=== PATIENT | female | born 1990 | race Caucasian/White ===

== ENCOUNTER 2016-05-10 14:18 | Emergency (ER) | payer MEDICAID ==
--- NOTE | 2016-05-10 14:31 | ER Document Report ---
ED Medical Screen (RME) - General Stated Complaint: FACIAL WEAKNESS Notes: pt states she woke up this morning with pain behind her right ear and then the right side of her face feels "strange". she hasnt been able to smile since she woke up. no headache, trauma, no other associated muscle abnormalities, no speech abnormlaities Full AROM, strength 5/5 b/l, no sensory deficits pt is fully ambulatory PMH: depression, anxiety
--- NOTE | 2016-05-10 16:15 | ER Document Report ---
ED General - General Chief Complaint: Facial Droop Stated Complaint: FACIAL WEAKNESS Mode of Arrival: Ambulatory Information source: Patient Notes: 26-year-old female who is 8 months presents with complaints of right facial symptoms. Patient believes she has Ashton's palsy. Admits to a history of herpes. Notes it is difficult close her eye scrunch her for head or close her mouth since this morning pt notes ear pain o nthe same side TRAVEL OUTSIDE OF THE [place] IN LAST 30 DAYS: No - HPI Onset: Just prior to arrival Onset/Duration: Sudden Quality of pain: Sharp Severity: Mild Associated symptoms: None Exacerbated by: Denies Relieved by: Denies Similar symptoms previously: No Recently seen / treated by doctor: No - Related Data Allergies/Adverse Reactions: No Known Allergies Allergy (Unverified 05/10/16 14:21) Past Medical History - Social History Smoking Status: Never Smoker Cigarette use (# per day): No Chew tobacco use (# tins/day): No Smoking Education Provided: No Frequency of alcohol use: None Drug Abuse: None Family History: Reviewed & Not Pertinent Patient has suicidal ideation: No Patient has homicidal ideation: No Renal/ Medical History: Denies: Hx Peritoneal Dialysis - Immunizations Hx Diphtheria, Pertussis, Tetanus Vaccination: Yes Review of Systems - Review of Systems Notes: REVIEW OF SYSTEMS: CONSTITUTIONAL : Denies fever, chills, or sweats. Denies recent illness. EENT: admits ot right ear pain, right eye difficulty closing eye lid CARDIOVASCULAR: Denies chest pain. Denies palpitations or racing or irregular heart beat. Denies ankle edema. RESPIRATORY: Denies cough, cold, or chest congestion. Denies shortness of breath, difficulty breathing, or wheezing. GASTROINTESTINAL: Denies abdominal pain or distention. Denies nausea, vomiting , or diarrhea. Denies blood in vomitus, stools, or per rectum. Denies black, tarry stools. Denies constipation. GENITOURINARY: Denies difficulty urinating, painful urination, burning, frequency, blood in urine, or discharge. FEMALE GENITOURINARY: Denies vaginal bleeding, heavy or abnormal periods, irregular periods. Denies vaginal discharge or odor. MUSCULOSKELETAL: Denies back or neck pain or stiffness. Denies joint pain or swelling. SKIN: Denies rash, lesions or sores. HEMATOLOGIC : Denies easy bruising or bleeding. LYMPHATIC: Denies swollen, enlarged glands. NEUROLOGICAL: admits to right facial droop PSYCHIATRIC: Denies anxiety or stress. Denies depression, suicidal ideation, or homicidal ideation. ALL OTHER SYSTEMS REVIEWED AND NEGATIVE. Dictation was performed using [employer] voice recognition software PHYSICAL EXAMINATION: GENERAL: Well-appearing, well-nourished and in no acute distress. HEAD: unable to scrunch forehead on the right , left at baseline EYES: Pupils equal round and reactive to light, extraocular movements intact, conjunctiva are normal.unable to fully clsoe left eye ENT: Nares patent, oropharynx clear without exudates. Moist mucous membranes. right ear herpetic ulcer noted NECK: Normal range of motion, supple without lymphadenopathy LUNGS: Breath sounds clear to auscultation bilaterally and equal. No wheezes rales or rhonchi. HEART: Regular rate and rhythm without murmurs ABDOMEN: Soft, nontender, nondistended abdomen. No guarding, no rebound. No masses appreciated. Female : deferred Musculoskeletal: Normal range of motion, no pitting or edema. No cyanosis. NEUROLOGICAL: Cranial nerves grossly intact. Normal speech, normal gait. Normal sensory, motor exams PSYCH: Normal mood, normal affect. SKIN: Warm, Dry, normal turgor, no rashes or lesions noted. Physical Exam - Vital signs Vitals: Temp Pulse Resp BP Pulse Ox 98.3 F 113 H 16 136/92 H 98 05/10/16 14:21 05/10/16 14:21 05/10/16 14:21 05/10/16 14:21 05/10/16 14:21 Course - Re-evaluation Re-evalutation: 05/10/16 16:[address] boyce regarding use of steroids 05/10/16 23:31 pt presentation is consistent with bells pallsy secondary to herpes, pt started on acyclovir and steroids Patient otherwise stable for discharge explained to her and close return precautions and follow-up with [facility] After performing a Medical Screening Examination, I estimate there is LOW risk for ACUTE GLAUCOMA, TEMPORAL ARTERITIS, MENINGITIS, INCRANIAL HEMORRHAGE, or ISCHEMIC STROKE thus I consider the discharge disposition reasonable. The patient and I have discussed the diagnosis and risks, and we agree with discharging home with close follow-up with the understanding that symptoms and presentations can change. We also discussed returning to the Emergency Department immediately if new or worsening symptoms occur. We have discussed the symptoms which are most concerning (e.g., changing or worsening symptoms, new numbness or weakness, vomiting, fever) that necessitate immediate return. - Vital Signs Vital signs: Temp Pulse Resp BP Pulse Ox 98.3 F 71 16 127/64 H 98 05/10/16 14:21 05/10/16 16:27 05/10/16 16:27 05/10/16 16:27 05/10/16 16:27 Discharge - Discharge Clinical Impression: Ashton's palsy Qualifiers: Weeks of gestation: 30 weeks Qualified Code(s): Z3A.30 - 30 weeks gestation of Condition: Stable Disposition: HOME, SELF-CARE Instructions: Ashton's Palsy ([facility]) Prescriptions: Acyclovir [Acyclovir 400 mg Tablet] 400 mg PO 5XD 10 Days Prednisone [Deltasone 20 mg Tablet] 3 tab PO DAILY 5 Days Referrals: [facility] [Provider Group] - Follow up tomorrow
[2016-05-10 16:29] VITALS: BP 127/64
== END 2016-05-10 16:27 | disposition home or self-care (01) ==
LOC: ER 14:18 → EDBD 14:18 → ER 16:27
DX: G51.0 Bell's palsy (principal); R29.810 Facial weakness; B00.9 Herpesviral infection, unspecified; Z3A.30 30 weeks gestation of pregnancy
CPT/HCPCS: 99283

== ENCOUNTER 2016-05-31 11:09 | Inpatient (IN) | payer MEDICAID ==
--- NOTE | 2016-05-31 12:01 | L&D Flow Sheet ---
LD Flowsheet Datetime Report Generated by CPN: 05/31/2016 12:00 Datetime: 05/31/2016 11:37 Vital Signs NBP Sys/Alee/Mean (mmHg): 119 (QS system process) : 78 (QS system process) : 90 (QS system process) Pulse: 98 (QS system process) Datetime: 05/31/2016 11:36 Assessment A Monitor Interventions for FHR: Ultrasound Adjusted (Kenyatta Marlatt, RN) Datetime: 05/31/2016 11:35 Uterine Activity Monitor Interventions for UA: [place] Adjusted (Kenyatta Marlatt, RN) Datetime: 05/31/2016 11:30 Assessment A Monitor Interventions for FHR: Ultrasound Adjusted (Kenyatta Marlatt, RN) Datetime: 05/31/2016 11:26 Vaginal Exam Dilatation (cm): 1.0 (Kenyatta Foy RN) Effacement (%): 0 (Kenyatta Foy RN) Station: -2 (Kenyatta Foy RN) Exam by: Matilde Foy RN (Kenyatta Foy RN)
[2016-05-31 12:07] LABS: AMNISURE (ROM) POSITIVE (NEGATIVE)
[2016-05-31 12:09] LABS: APPEARANCE,URINE CLOUDY; GLUCOSE, URINE NEGATIVE (NEGATIVE)
[2016-05-31 12:10] LABS: BILIRUBIN,URINE NEGATIVE (NEGATIVE); KETONES,URINE NEGATIVE (NEGATIVE); LEUKOCYTE ESTERASE,URINE NEGATIVE (NEGATIVE); NITRITE,URINE NEGATIVE (NEGATIVE); PROTEIN,URINE 30 mg/dL (NEGATIVE); URINE SPECIFIC GRAVITY 1.015; UROBILINOGEN,URINE NEGATIVE mg/dL (<2.0)
[2016-05-31 12:28] LABS: URINE BARBITURATES SCREEN NEGATIVE; URINE METHADONE SCREEN NEGATIVE; URINE OPIATES LOW NEGATIVE; URINE PHENCYCLIDINE SCREEN NEGATIVE
[2016-05-31] MEDS ORDERED: PENICILLIN G POTASSIUM 5,000,000 UNIT in DEXTROSE 5%-WATER 100 ML IV ONE (12:31)
[2016-05-31] MEDS ORDERED: RINGERS SOLUTION,LACTATED 1,000 ML IV PRN (12:31)
[2016-05-31 13:31] LABS: ABSOLUTE BASOPHILS # (AUTO) 0.1 10^3/uL (0.0-0.2); ABSOLUTE EOSINOPHILS # (AUTO) 0.1 10^3/uL (0.0-0.6); ABSOLUTE LYMPHOCYTES (AUTO) 1.9 10^3/uL (0.5-4.7); ABSOLUTE MONOCYTES (AUTO) 0.6 10^3/uL (0.1-1.4); ABSOLUTE NEUT (AUTO) 8.4 10^3/uL (1.7-8.2); BASOPHILS % (AUTO) 0.6 % (0-2); EOSINOPHILS % (AUTO) 0.5 % (0-6); HEMATOCRIT 37.5 % (36.0-47.0); HEMOGLOBIN 13.1 g/dL (12.0-15.5); HGB HCT DIFFERENCE 1.8; MEAN CORPUSCULAR HEMOGLOBIN 30.5 pg (27.0-33.4); MEAN CORPUSCULAR HGB CONC 34.8 g/dL (32.0-36.0); MEAN CORPUSCULAR VOLUME 88 fl (80-97); MONOCYTES % (AUTO) 5.2 % (3-13); RED BLOOD COUNT 4.28 10^6/uL (3.72-5.28); RED CELL DISTRIBUTION WIDTH 14.2 % (11.5-14.0); SEGMENTED NEUTROPHILS % (AUTO) 76.7 % (42-78)
[2016-05-31] MEDS ORDERED: MISOPROSTOL 0.1 MG TABLET ONE ×4 (14:00→23:31)
--- NOTE | 2016-05-31 14:01 | L&D Flow Sheet ---
LD Flowsheet Datetime Report Generated by CPN: 05/31/2016 14:00 Datetime: 05/31/2016 13:34 Unit Routine: Consents Signed (Aurora Camp, RNC) Teaching Comments: consents reviewed, questions addressed (Aurora Camp, RNC) Datetime: 05/31/2016 13:25 IV/Blood Work: IV Started; IV Bolus Started; IV Infusing per Order (Aurora Camp, RNC) Patient Care Comments: 18 g jelco placed in right hand LR 1000 ml infusing via gravity as ordered (Aurora Flores, RNC) Datetime: 05/31/2016 13:14 IV/Blood Work: Labs Drawn (Aurora Flores, RNC)
[2016-05-31] MEDS ORDERED: PENICILLIN G-K 5 MILLION UNIT VIAL ONE (15:49)
--- NOTE | 2016-05-31 18:01 | L&D Flow Sheet ---
LD Flowsheet Datetime Report Generated by CPN: 05/31/2016 18:00 Datetime: 05/31/2016 17:45 NBP Sys/Alee/Mean (mmHg): 140 (QS system process) : 91 (QS system process) : 111 (QS system process) Pulse: 98 (QS system process) LaborFlag: Antepartum (QS system process) Datetime: 05/31/2016 17:34 NBP Sys/Alee/Mean (mmHg): 163 (QS system process) : 90 (QS system process) : 118 (QS system process) Pulse: 100 (QS system process) LaborFlag: Antepartum (QS system process) Datetime: 05/31/2016 17:32 Temperature (F): 98.3 (Viet Bauer RN) Temperature (C): 36.8 (QS system process) Monitor Mode: External (Viet Bauer, RN) Frequency (min): 0 (Viet Bauer RN) Resting Tone (Palpate): Relaxed (Viet Bauer RN) Monitor Mode: External US (Viet Bauer, RN) FHR Baseline Rate : 135 (Viet Bauer, RN) Variability: Moderate 6-25 bpm (Viet Bauer, RN) Accelerations: 15X15 (Viet Bauer, RN) Decelerations: None (Viet Bauer, RN) IV/Blood Work: IV Infusing per Order (Viet Bauer RN) LaborFlag: Antepartum (QS system process) Datetime: 05/31/2016 16:57 Monitor Mode: External (Nnada Bellavance, RNC) Frequency (min): 0 (Nanda Bellavance, RNC) Resting Tone (Palpate): Relaxed (Nanda Bellavance, RNC) Monitor Mode: External US (Nanda Bellavance, RNC) FHR Baseline Rate : 135 (Nanda Bellavance, RNC) Variability: Moderate 6-25 bpm (Nanda Bellavance, RNC) Accelerations: 15X15 (Nanda Bellavance, RNC) Decelerations: None (Nanda Bellavance, RNC) IV/Blood Work: IV Infusing per Order (Nanda Bellavance, RNC) Datetime: 05/31/2016 16:30 Monitor Mode: External (Nanda Bellavance, RNC) Frequency (min): rare (Nanda Bellavance, RNC) Quality: Mild (Nanda Bellavance, RNC) Duration (sec): 80 (Nanda Bellavance, RNC) Resting Tone (Palpate): Relaxed (Nanda Bellavance, RNC) Monitor Mode: External US (Nanda Bellavance, RNC) FHR Baseline Rate : 135 (Nanda Bellavance, RNC) Variability: Moderate 6-25 bpm (Nanda Bellavance, RNC) Accelerations: 15X15 (Nanda Bellavance, RNC) Decelerations: None (Nanda Bellavance, RNC) IV/Blood Work: IV Infusing per Order (Nanda Bellavance, RNC) Datetime: 05/31/2016 16:00 Monitor Mode: External (Nanda Bellavance, RNC) Frequency (min): rare (Nanda Bellavance, RNC) Quality: Mild (Nanda Bellavance, RNC) Duration (sec): 90 (Nanda Bellavance, RNC) Resting Tone (Palpate): Relaxed (Nanda Bellavance, RNC) Monitor Mode: External US (Nanda Bellavance, RNC) FHR Baseline Rate : 135 (Nanda Bellavance, RNC) Variability: Moderate 6-25 bpm (Nanda Bellavance, RNC) Accelerations: 15X15 (Nanda Bellavance, RNC) Decelerations: None (Nanda Bellavance, RNC) Antibiotics: Penicillin IV (Units) @ (Annotations: 5 million units) (Nanda Bellavance, RNC) IV/Blood Work: IV Infusing per Order (Nanda Bellavance, RNC) Datetime: 05/31/2016 15:30 Monitor Mode: External (Nanda Bellavance, RNC) Frequency (min): 0 (Nanda Bellavance, RNC) Resting Tone (Palpate): Relaxed (Nanda Bellavance, RNC) Monitor Mode: External US (Nanda Bellavance, RNC) FHR Baseline Rate : 135 (Nanda Bellavance, RNC) Variability: Moderate 6-25 bpm (Nanda Bellavance, RNC) Accelerations: 15X15 (Nanda Bellavance, RNC) Decelerations: None (Nanda Bellavance, RNC) IV/Blood Work: IV Infusing per Order (Nanda Bellavance, RNC) Datetime: 05/31/2016 15:00 Monitor Mode: External (Nanda Bellavance, RNC) Frequency (min): 0 (Nanda Bellavance, RNC) Resting Tone (Palpate): Relaxed (Nanda Bellavance, RNC) Monitor Mode: External US (Nanda Bellavance, RNC) FHR Baseline Rate : 135 (Nanda Bellavance, RNC) Variability: Moderate 6-25 bpm (Nanda Bellavance, RNC) Accelerations: 15X15 (Nanda Bellavance, RNC) Decelerations: Variable (Nanda Bellavance, RNC) IV/Blood Work: IV Infusing per Order (Nanda Bellavance, RNC) Datetime: 05/31/2016 14:45 Cervical Ripening Agents: Cytotec @ 50 po (Nanda Bellavance, RNC) Datetime: 05/31/2016 14:30 Monitor Mode: External (Nanda Bellavance, RNC) Frequency (min): 0 (Nanda Bellavance, RNC) Resting Tone (Palpate): Relaxed (Nanda Bellavance, RNC) Monitor Mode: External US (Nanda Bellavance, RNC) FHR Baseline Rate : 135 (Nanda Bellavance, RNC) Variability: Moderate 6-25 bpm (Nanda Bellavance, RNC) Accelerations: 15X15 (Nanda Bellavance, RNC) Decelerations: None (Nanda Bellavance, RNC) IV/Blood Work: IV Infusing per Order (Nanda Bellavance, RNC) Datetime: 05/31/2016 14:00 Monitor Mode: External (Nanda Bellavance, RNC) Frequency (min): 0 (Nanda Bellavance, RNC) Resting Tone (Palpate): Relaxed (Nanda Bellavance, RNC) Monitor Mode: External US (Nanda Bellavance, RNC) FHR Baseline Rate : 130 (Nanda Bellavance, RNC) Variability: Moderate 6-25 bpm (Nanda Bellavance, RNC) Accelerations: 15X15 (Nanda Bellavance, RNC) Decelerations: None (Nanda Bellavance, RNC) IV/Blood Work: IV Infusing per Order (Nanda Alva, RNC)
[2016-05-31 19:53] LABS: CHLAM PCR NOT DETECTED (NOT DETECT)
--- NOTE | 2016-05-31 20:01 | L&D Flow Sheet ---
LD Flowsheet Datetime Report Generated by CPN: 05/31/2016 20:00 Datetime: 05/31/2016 19:50 Communication: Provider Orders Received ([facility], RN) Communication Comments: Dr Ceballos on the floor, orders received Cytotes 25 mcg q 4 until pt. is 3 cm dilated. (Karen Jonnathangerwood, RN) Datetime: 05/31/2016 19:48 NBP Sys/Alee/Mean (mmHg): 140 (QS system process) : 82 (QS system process) : 106 (QS system process) Pulse: 90 (QS system process) LaborFlag: Antepartum (QS system process) Datetime: 05/31/2016 19:47 Membrane Status: Ruptured (Marcia Lattibeaudeir, RN) Membranes Rupture Method: Spontaneous (Marcia Lattibeaudeir, RN) Datetime: 05/31/2016 19:30 Monitor Mode: External; Palpation (Karen Chenwood, RN) Frequency (min): none (Karen Ledgerwood, RN) Resting Tone (Palpate): Relaxed (Karen Ledgerwood, RN) Contraction Comments: no contractions noted per palpation, pt reports no contractions. (Karen Ledgerwood, RN) Monitor Mode: External US (Karen Ledgerwood, RN) FHR Baseline Rate : 145 (Karen Ledgerwood, RN) FHR Baseline Changes: No Baseline Change (Karen Ledgerwood, RN) Variability: Moderate 6-25 bpm (Karen Ledgerwood, RN) Accelerations: 15X15 (Karen Ledgerwood, RN) Decelerations: None (Karen Ledgerwood, RN) Datetime: 05/31/2016 19:29 NBP Sys/Alee/Mean (mmHg): 148 (QS system process) : 82 (QS system process) : 107 (QS system process) Pulse: 103 (QS system process) LaborFlag: Antepartum (QS system process) Datetime: 05/31/2016 19:21 Pain Scale: 2 (aKren Walls RN) Pain Presence: Intermittent (Karen Walls RN) Pain Type: Contraction (Karen Walls RN) Pain Location: Abdomen (Karen Walls RN) Level of Consciousness: Fully Conscious (Karen Walls RN) DTR's/Clonus: DTRs 2+; No Clonus (Karen Walls RN) Headache: Denies (Karen Walls RN) Breath Sounds, Left: Clear and Equal (Karen Walls RN) Breath Sounds, Right: Clear and Equal (Karen Walls RN) Nausea/Vomiting: Denies (Karen Walls RN) RUQ Epigastric Pain: Denies (Karen Walls RN) Instructional Method: Demo; Verbal; Patient Instructed (Karen Walls RN) Plan of Care: Plan of Care Discussed; Vaginal Delivery; Induction (Karen Walls RN) Unit Routine: Monitoring (Karen Walls RN) LaborFlag: Antepartum (QS system process) Datetime: 05/31/2016 19:18 NBP Sys/Alee/Mean (mmHg): 158 (QS system process) : 83 (QS system process) : 114 (QS system process) Pulse: 100 (QS system process) LaborFlag: Antepartum (QS system process) Datetime: 05/31/2016 19:11 Communication Comments: Report received from Viet Bauer RN (Karen Walls RN) Datetime: 05/31/2016 18:48 NBP Sys/Alee/Mean (mmHg): 150 (QS system process) : 73 (QS system process) : 104 (QS system process) Pulse: 112 (QS system process) LaborFlag: Antepartum (QS system process) Datetime: 05/31/2016 18:30 Monitor Mode: External; Palpation (Aurora Camp, RNC) Frequency (min): irritability (Aurora Camp, RNC) Resting Tone (Palpate): Relaxed (Aurora Camp, RNC) Monitor Mode: External US; Auscultation (Aurora Camp, RNC) FHR Baseline Rate : 135 (Aurora Camp, RNC) FHR Baseline Changes: No Baseline Change (Aurora Camp, RNC) Variability: Moderate 6-25 bpm (Aurora Camp, RNC) Accelerations: 15X15 (Aurora Camp, RNC) Datetime: 05/31/2016 18:19 NBP Sys/Alee/Mean (mmHg): 142 (QS system process) : 86 (QS system process) : 110 (QS system process) Pulse: 85 (QS system process) LaborFlag: Antepartum (QS system process) Datetime: 05/31/2016 18:00 Monitor Mode: External; Palpation (Aurora Camp, RNC) Monitor Interventions for UA: [place] Adjusted (Aurora Camp, RNC) Frequency (min): irritability (Aurora Camp, RNC) Resting Tone (Palpate): Relaxed (Aurora Camp, RNC) Monitor Mode: External US; Auscultation (Aurora Camp, RNC) FHR Baseline Rate : 140 (Aurora Camp, RNC) FHR Baseline Changes: No Baseline Change (Aurora Camp, RNC) Variability: Moderate 6-25 bpm (Aurora Camp, RNC) Accelerations: 15X15 (Aurora Camp, RNC) Decelerations: None (Aurora Camp, RNC)
[2016-05-31] MEDS ORDERED: MISOPROSTOL 0.1 MG TABLET PO ONE (20:30)
--- NOTE | 2016-05-31 22:00 | L&D Flow Sheet ---
LD Flowsheet Datetime Report Generated by CPN: 05/31/2016 22:00 Datetime: 05/31/2016 21:51 Monitor Interventions for UA: [place] Adjusted (Karen Ledgerwood, RN) Communication: RN at Bedside (Karen Ledgerwood, RN) Datetime: 05/31/2016 21:48 NBP Sys/Alee/Mean (mmHg): 133 (QS system process) : 84 (QS system process) : 104 (QS system process) Pulse: 87 (QS system process) LaborFlag: Antepartum (QS system process) Datetime: 05/31/2016 21:36 Monitor Interventions for UA: [place] Adjusted (Karen Jonnathangerwood, RN) Communication: RN at Bedside (Karen Ledgerwood, RN) Datetime: 05/31/2016 21:30 Monitor Mode: External; Palpation (Karen Ledgerwood, RN) Frequency (min): 5-7 (Karen Ledgerwood, RN) Quality: Mild (Karen Ledgerwood, RN) Duration (sec): 80-120 (Karen Ledgerwood, RN) Resting Tone (Palpate): Relaxed (Karen Ledgerwood, RN) Monitor Mode: External US (Karen Ledgerwood, RN) FHR Baseline Rate : 154 (Karen Ledgerwood, RN) FHR Baseline Changes: No Baseline Change (Karen Ledgerwood, RN) Variability: Moderate 6-25 bpm (Karen Ledgerwood, RN) Accelerations: 10X10 (Karen Ledgerwood, RN) Decelerations: None (Karen Ledgerwood, RN) Datetime: 05/31/2016 21:18 NBP Sys/Alee/Mean (mmHg): 138 (QS system process) : 88 (QS system process) : 108 (QS system process) Pulse: 87 (QS system process) LaborFlag: Antepartum (QS system process) Datetime: 05/31/2016 21:00 Monitor Mode: External; Palpation (Karen Ledgerwood, RN) Frequency (min): irritability (Karen Ledgerwood, RN) Quality: Mild (Karen Ledgerwood, RN) Resting Tone (Palpate): Relaxed (Karen Ledgerwood, RN) Monitor Mode: External US (Karen Ledgerwood, RN) FHR Baseline Rate : 145 (Karen Ledgerwood, RN) FHR Baseline Changes: No Baseline Change (Karen Ledgerwood, RN) Variability: Moderate 6-25 bpm (Karen Ledgerwood, RN) Accelerations: 10X10 (Karen Ledgerwood, RN) Decelerations: None (Karen Ledgerwood, RN) Datetime: 05/31/2016 20:49 NBP Sys/Alee/Mean (mmHg): 142 (QS system process) : 85 (QS system process) : 109 (QS system process) Pulse: 82 (QS system process) LaborFlag: Antepartum (QS system process) Datetime: 05/31/2016 20:30 Monitor Mode: External; Palpation (Karen Ledgerwood, RN) Frequency (min): irritability (Karen Ledgerwood, RN) Resting Tone (Palpate): Relaxed (Karen Ledgerwood, RN) Monitor Mode: External US (Karen Ledgerwood, RN) FHR Baseline Rate : 145 (Karen Ledgerwood, RN) FHR Baseline Changes: No Baseline Change (Karen Ledgerwood, RN) Variability: Moderate 6-25 bpm (Karen Ledgerwood, RN) Accelerations: 15X15 (Karen Ledgerwood, RN) Decelerations: None (Karen Ledgerwood, RN) Datetime: 05/31/2016 20:18 NBP Sys/Alee/Mean (mmHg): 143 (QS system process) : 83 (QS system process) : 107 (QS system process) Pulse: 97 (QS system process) LaborFlag: Antepartum (QS system process) Datetime: 05/31/2016 20:00 Monitor Mode: External; Palpation (Karen Walls, TJ) Frequency (min): occas (Karen Walls, TJ) Quality: Mild (Karen Walls, RN) Duration (sec): 120 (Karen Walls, RN) Resting Tone (Palpate): Relaxed (Karen Walls, RN) Monitor Mode: External US (Karen Walls, RN) FHR Baseline Rate : 145 (Karen Walls, RN) FHR Baseline Changes: No Baseline Change (Karen Walls, RN) Variability: Moderate 6-25 bpm (Karen Walls, RN) Accelerations: 10X10 (Karen Walls, RN) Decelerations: None (Karen Walls, RN) Cervical Ripening Agents: Cytotec @ 25 (Karen Walls, TJ) Medication Comments: Cytotec 25 mcg PO given (Karen Walls, RN)
[2016-05-31] MEDS ORDERED: ONDANSETRON HCL INJ/PF 4 MG/2 ML SDV ONE (23:45)
[2016-05-31] MEDS ORDERED: ONDANSETRON HCL INJ/PF 4 MG/2 ML SDV IV ONE (23:48)
[2016-05-31] MEDS: MISOPROSTOL 0.1 MG TABLET PO SCH (23:59)
[2016-06-01] MEDS ORDERED: ZOLPIDEM TARTRATE 5 MG TABLET PO ONE (00:03)
[2016-06-01] MEDS ORDERED: ZOLPIDEM TARTRATE 5 MG TABLET ONE ×2 (00:04→00:40)
[2016-06-01] MEDS ORDERED: PENICILLIN G-K 5 MILLION UNIT VIAL ONE ×5 (00:23→16:29)
[2016-06-01] MEDS: PENICILLIN G POTASSIUM 2,500,000 UNIT in DEXTROSE 5%-WATER 50 ML IV SCH ×3 (00:31→16:50)
[2016-06-01] MEDS ORDERED: MISOPROSTOL 0.1 MG TABLET ONE (03:49)
[2016-06-01] MEDS: MISOPROSTOL 0.1 MG TABLET PO SCH (03:58)
[2016-06-01] MEDS ORDERED: PROMETHAZINE HCL INJ 25 MG/1 ML VIAL IV ONE (05:41)
[2016-06-01] MEDS ORDERED: PROMETHAZINE HCL INJ 25 MG/1 ML VIAL ONE (05:47)
--- NOTE | 2016-06-01 08:01 | L&D Flow Sheet ---
LD Flowsheet Datetime Report Generated by CPN: 06/01/2016 08:00 Datetime: 06/01/2016 07:50 NBP Sys/Alee/Mean (mmHg): 144 (QS system process) : 62 (QS system process) : 89 (QS system process) Pulse: 85 (QS system process) LaborFlag: Antepartum (QS system process) Datetime: 06/01/2016 07:36 Level of Consciousness: Fully Conscious (Shanna Bryanna, RN) Headache: Denies (Shanna Bryanna, RN) Breath Sounds, Left: Clear and Equal (Shanna Bryanna, RN) Breath Sounds, Right: Clear and Equal (Shanna Bryanna, RN) Nausea/Vomiting: pt states phenergan has helped a little but still feels nauseous at times (Shanna Bryanna, RN) RUQ Epigastric Pain: Denies (Shanna Bryanna, RN) Datetime: 06/01/2016 07:33 Patient Care Comments: pt resting in bed on her left side in no current distress (Shanna Bryanna, RN) Datetime: 06/01/2016 07:30 Monitor Mode: External; Palpation (Shanna Bryanna, RN) Frequency (min): 3-6 (Shanna Bryanna, RN) Quality: Mild (Shanna Bryanna, RN) Duration (sec): 50-80 (Shanna Bryanna, RN) Resting Tone (Palpate): Relaxed (Shanna Bryanna, RN) Monitor Mode: External US (Shanna Bryanna, RN) FHR Baseline Rate : 125 (Shanna Bryanna, RN) Variability: Moderate 6-25 bpm (Shanna Bryanna, RN) Accelerations: 15X15 (Shanna Bryanna, RN) Decelerations: None (Shanna Bryanna, RN) Datetime: 06/01/2016 07:22 Communication: Report Given to @ A Bryanna RN (Karen Ledgerwood, RN) Datetime: 06/01/2016 07:19 NBP Sys/Alee/Mean (mmHg): 155 (QS system process) : 80 (QS system process) : 106 (QS system process) Pulse: 91 (QS system process) LaborFlag: Antepartum (QS system process) Datetime: 06/01/2016 07:00 Monitor Mode: External; Palpation (Karen Ledgerwood, RN) Frequency (min): 2.5-5 (Karen Ledgerwood, RN) Quality: Mild/Moderate (Karen Ledgerwood, RN) Duration (sec): 60-80 (Karen Ledgerwood, RN) Duration Criteria: Less than Two 120 Second Contractions (Karen Ledgerwood, RN) Pattern: Normal: <= 5 Contractions in 10 Minutes (Karen Ledgerwood, RN) Resting Tone (Palpate): Relaxed (Karen Ledgerwood, RN) Monitor Mode: External US (Karen Ledgerwood, RN) FHR Baseline Rate : 135 (Karen Ledgerwood, RN) FHR Baseline Changes: No Baseline Change (Karen Ledgerwood, RN) Variability: Moderate 6-25 bpm (Karen Ledgerwood, RN) Accelerations: 15X15 (Karen Ledgerwood, RN) Decelerations: Variable (Karen Ledgerwood, RN) Datetime: 06/01/2016 06:48 NBP Sys/Alee/Mean (mmHg): 143 (QS system process) : 67 (QS system process) : 96 (QS system process) Pulse: 83 (QS system process) LaborFlag: Antepartum (QS system process) Datetime: 06/01/2016 06:30 Monitor Mode: External; Palpation (Karen Ledgerwood, RN) Frequency (min): 3-4.5 (Karen Ledgerwood, RN) Quality: Mild/Moderate (Karen Ledgerwood, RN) Duration (sec): 50-70 (Karen Ledgerwood, RN) Duration Criteria: Less than Two 120 Second Contractions (Karen Ledgerwood, RN) Pattern: Normal: <= 5 Contractions in 10 Minutes (Karen Ledgerwood, RN) Resting Tone (Palpate): Relaxed (Karne Ledgerwood, RN) Monitor Mode: External US (Karen Ledgerwood, RN) FHR Baseline Rate : 130 (Karen Ledgerwood, RN) FHR Baseline Changes: No Baseline Change (Karen Ledgerwood, RN) Variability: Moderate 6-25 bpm (Karen Ledgerwood, RN) Accelerations: 10X10 (Karen Ledgerwood, RN) Decelerations: Variable (Karen Ledgerwood, RN) Datetime: 06/01/2016 06:18 NBP Sys/Alee/Mean (mmHg): 133 (QS system process) : 73 (QS system process) : 97 (QS system process) Pulse: 88 (QS system process) LaborFlag: Antepartum (QS system process) Datetime: 06/01/2016 06:00 Monitor Mode: External; Palpation (Karen Ledgerwood, RN) Frequency (min): 2.5-4.5 (Karen Ledgerwood, RN) Quality: Mild/Moderate (Karen Ledgerwood, RN) Duration (sec): 60-70 (Karen Ledgerwood, RN) Duration Criteria: Less than Two 120 Second Contractions (Karen Ledgerwood, RN) Pattern: Normal: <= 5 Contractions in 10 Minutes (Karen Ledgerwood, RN) Resting Tone (Palpate): Relaxed (Karen Ledgerwood, RN) Monitor Mode: External US (Karen Ledgerwood, RN) FHR Baseline Rate : 135 (Karen Ledgerwood, RN) FHR Baseline Changes: No Baseline Change (Karen Ledgerwood, RN) Variability: Moderate 6-25 bpm (Karen Ledgerwood, RN) Accelerations: 10X10 (Karen Ledgerwood, RN) Decelerations: Variable (Karen Ledgerwood, RN) Datetime: 06/01/2016 05:51 Antiemetics/Antacids: Phenergan IV (mg) @ 25 (Karen Ledgerwood, RN) Datetime: 06/01/2016 05:50 NBP Sys/Alee/Mean (mmHg): 148 (QS system process) : 75 (QS system process) : 105 (QS system process) Pulse: 95 (QS system process) Respirations: 15 (Karen Naranjo, RN) LaborFlag: Antepartum (QS system process) Datetime: 06/01/2016 05:49 NBP Sys/Alee/Mean (mmHg): 160 (QS system process) : 92 (QS system process) : 117 (QS system process) Pulse: 95 (QS system process) LaborFlag: Antepartum (QS system process) Datetime: 06/01/2016 05:39 Communication: Provider Orders Received; Call/Page Placed to Provider (Karen Naranjo, RN) Communication Comments: Order received from Dr Ceballos to give Phenergan IV 25 mg Now (Karencasandra De Santiagogeranabelle, RN) Datetime: 06/01/2016 05:30 Monitor Mode: External; Palpation (Karen Naranjo, RN) Frequency (min): 2.5 (Karen Ledgerwood, RN) Quality: Mild/Moderate (Karen Ledgerwood, RN) Duration (sec): 70 (Karen Ledgerwood, RN) Duration Criteria: Less than Two 120 Second Contractions (Karen Ledgerwood, RN) Pattern: Normal: <= 5 Contractions in 10 Minutes (Karen Ledgerwood, RN) Resting Tone (Palpate): Relaxed (Karen Ledgerwood, RN) Monitor Mode: External US (Karen Ledgerwood, RN) FHR Baseline Rate : 145 (Karen Ledgerwood, RN) FHR Baseline Changes: No Baseline Change (Karen Ledgerwood, RN) Variability: Moderate 6-25 bpm (Karen Ledgerwood, RN) Accelerations: 10X10 (Karen Ledgerwood, RN) Decelerations: Variable (Karen Ledgerwood, RN) Datetime: 06/01/2016 05:18 NBP Sys/Alee/Mean (mmHg): 136 (QS system process) : 88 (QS system process) : 109 (QS system process) Pulse: 98 (QS system process) LaborFlag: Antepartum (QS system process) Datetime: 06/01/2016 05:07 Patient Position/Activity: Left Extreme (Karen Ledgerwood, RN) Datetime: 06/01/2016 05:06 IV/Blood Work: IV Started; IV Bolus Started (Sherlyn Errichiello, RN) Datetime: 06/01/2016 05:01 SpO2 (%): 90 (QS system process) LaborFlag: Antepartum (QS system process) Datetime: 06/01/2016 05:00 Monitor Mode: External; Palpation (Karen Ledgerwood, RN) Frequency (min): 1.5-3 (Karen Ledgerwood, RN) Quality: Mild/Moderate (Karen Ledgerwood, RN) Duration (sec): 60-70 (Kraen Ledgerwood, RN) Duration Criteria: Less than Two 120 Second Contractions (Karen Ledgerwood, RN) Pattern: Normal: <= 5 Contractions in 10 Minutes (Karen Ledgerwood, RN) Resting Tone (Palpate): Relaxed (Karen Ledgerwood, RN) Monitor Mode: External US (Karen Ledgerwood, RN) FHR Baseline Rate : 120 (Karen Ledgerwood, RN) FHR Baseline Changes: No Baseline Change (Karen Ledgerwood, RN) Variability: Moderate 6-25 bpm (Karen Ledgerwood, RN) Accelerations: 10X10 (Karen Ledgerwood, RN) Decelerations: Prolonged (Karen Ledgerwood, RN) Datetime: 06/01/2016 04:56 Actions for Decelerations: Hands and Knees; Oxygen Applied (Karen Naranjo, TJ) Datetime: 06/01/2016 04:51 Monitor Interventions for UA: [place] Adjusted (Karen Naranjo RN) Monitor Interventions for FHR: Ultrasound Adjusted (Karen Naranjo RN) Actions for Decelerations: Side to Side; IV Bolus (Karen Naranjo RN) Communication: RN at Bedside (Karen Naranjo RN) Datetime: 06/01/2016 04:48 NBP Sys/Alee/Mean (mmHg): 146 (QS system process) : 80 (QS system process) : 107 (QS system process) Pulse: 96 (QS system process) Temperature (F): 98.2 (Karen Ledgerwood, RN) Temperature (C): 36.8 (QS system process) Temperature Route: Oral (Karen Ledgerwood, RN) LaborFlag: Antepartum (QS system process) Datetime: 06/01/2016 04:30 Monitor Mode: External; Palpation (Karen Ledgerwood, RN) Frequency (min): 1.5-3 (Karen Ledgerwood, RN) Quality: Mild/Moderate (Karen Ledgerwood, RN) Duration (sec): 60-70 (Karen Ledgerwood, RN) Duration Criteria: Less than Two 120 Second Contractions (Karen Ledgerwood, RN) Pattern: Normal: <= 5 Contractions in 10 Minutes (Karen Ledgerwood, RN) Resting Tone (Palpate): Relaxed (Karen Ledgerwood, RN) Monitor Mode: External US (Karen Ledgerwood, RN) FHR Baseline Rate : 120 (Karen Ledgerwood, RN) FHR Baseline Changes: No Baseline Change (Karen Ledgerwood, RN) Variability: Moderate 6-25 bpm (Karen Ledgerwood, RN) Accelerations: 15X15 (Karen Ledgerwood, RN) Decelerations: None (Karen Ledgerwood, RN) Datetime: 06/01/2016 04:20 Antibiotics: Penicillin IV (Units) @ [id number] (Karen Ledgerwood, RN) Datetime: 06/01/2016 04:19 NBP Sys/Alee/Mean (mmHg): 148 (QS system process) : 78 (QS system process) : 106 (QS system process) Pulse: 83 (QS system process) Respirations: 16 (Karen Ledgerwood, RN) LaborFlag: Antepartum (QS system process) Datetime: 06/01/2016 04:00 Monitor Mode: External; Palpation (Karen Ledgerwood, RN) Frequency (min): 1.5-3 (Karen Ledgerwood, RN) Quality: Mild/Moderate (Karen Ledgerwood, RN) Duration (sec): 60-70 (Karen Ledgerwood, RN) Duration Criteria: Less than Two 120 Second Contractions (Karen Ledgerwood, RN) Pattern: Normal: <= 5 Contractions in 10 Minutes (Karen Ledgerwood, RN) Resting Tone (Palpate): Relaxed (Karen Naranjo, RN) Monitor Mode: External US (Karen Naranjo, RN) FHR Baseline Rate : 135 (Karen Naranjo, RN) FHR Baseline Changes: No Baseline Change (Karen Naranjo, RN) Variability: Moderate 6-25 bpm (Karen De Santiagogeranabelle, RN) Decelerations: None (Karen Naranjo, RN) Cervical Ripening Agents: Cytotec @ (Marcia Concepcion RN) Medication Comments: Cytotec 25 mcg PO given (Karen Naranjo, RN) Datetime: 06/01/2016 03:53 Dilatation (cm): 2.0 (Karen Naranjo, RN) Effacement (%): 50 (Karen Naranjo, RN) Station: -2 (Karen Naranjo, RN) Exam by: Leonid naranjo RN (Karen Naranjo, RN) Datetime: 06/01/2016 03:48 NBP Sys/Laee/Mean (mmHg): 146 (QS system process) : 79 (QS system process) : 106 (QS system process) Pulse: 93 (QS system process) LaborFlag: Antepartum (QS system process) Datetime: 06/01/2016 03:30 Monitor Mode: External; Palpation (Karen Ledgerwood, RN) Frequency (min): 1.5-3.5 (Karen Ledgerwood, RN) Quality: Mild/Moderate (Karen Ledgerwood, RN) Duration (sec): 60-70 (Karen Ledgerwood, RN) Duration Criteria: Less than Two 120 Second Contractions (Karen Ledgerwood, RN) Pattern: Normal: <= 5 Contractions in 10 Minutes (Karen Ledgerwood, RN) Resting Tone (Palpate): Relaxed (Karen Ledgerwood, RN) Monitor Mode: External US (Karen Ledgerwood, RN) FHR Baseline Rate : 135 (Karen Ledgerwood, RN) FHR Baseline Changes: No Baseline Change (Karen Ledgerwood, RN) Variability: Moderate 6-25 bpm (Karen Ledgerwood, RN) Accelerations: 15X15 (Karen Ledgerwood, RN) Decelerations: None (Karen Ledgerwood, RN) Datetime: 06/01/2016 03:19 NBP Sys/Alee/Mean (mmHg): 142 (QS system process) : 75 (QS system process) : 100 (QS system process) Pulse: 94 (QS system process) LaborFlag: Antepartum (QS system process) Datetime: 06/01/2016 03:00 Monitor Mode: External; Palpation (Karen Ledgerwood, RN) Frequency (min): 1.5-5 (Karen Ledgerwood, RN) Quality: Mild/Moderate (Karen Ledgerwood, RN) Duration (sec): 60-90 (Karen Ledgerwood, RN) Duration Criteria: Less than Two 120 Second Contractions (Karen Ledgerwood, RN) Pattern: Normal: <= 5 Contractions in 10 Minutes (Karen Ledgerwood, RN) Resting Tone (Palpate): Relaxed (Karen Ledgerwood, RN) Monitor Mode: External US (Karen Ledgerwood, RN) FHR Baseline Rate : 135 (Karen Ledgerwood, RN) FHR Baseline Changes: No Baseline Change (Karen Ledgerwood, RN) Variability: Moderate 6-25 bpm (Karen Ledgerwood, RN) Accelerations: 10X10 (Karen Ledgerwood, RN) Decelerations: None (Karen Ledgerwood, RN) Datetime: 06/01/2016 02:30 Monitor Mode: External; Palpation (Karen Ledgerwood, RN) Frequency (min): 2.5-7 (Karen Ledgerwood, RN) Quality: Mild/Moderate (Karen Ledgerwood, RN) Duration (sec): 60-90 (Karen Ledgerwood, RN) Duration Criteria: Less than Two 120 Second Contractions (Karen Ledgerwood, RN) Pattern: Normal: <= 5 Contractions in 10 Minutes (Karen Ledgerwood, RN) Resting Tone (Palpate): Relaxed (Karen Ledgerwood, RN) Monitor Mode: External US (Karen Ledgerwood, RN) FHR Baseline Rate : 135 (Karen Ledgerwood, RN) FHR Baseline Changes: No Baseline Change (Karen Ledgerwood, RN) Variability: Moderate 6-25 bpm (Karen Ledgerwood, RN) Accelerations: 15X15 (Karen Ledgerwood, RN) Decelerations: Prolonged (Karen Ledgerwood, RN) Datetime: 06/01/2016 02:24 Patient Care Comments: pt. vomited (Karen Ledgerwood, RN) Datetime: 06/01/2016 02:19 NBP Sys/Alee/Mean (mmHg): 137 (QS system process) : 86 (QS system process) : 105 (QS system process) Pulse: 83 (QS system process) LaborFlag: Antepartum (QS system process) Datetime: 06/01/2016 02:00 Monitor Mode: External; Palpation (Karen Ledgerwood, RN) Frequency (min): 1.5-4.5 (Karen Ledgerwood, RN) Quality: Mild/Moderate (Karen Ledgerwood, RN) Duration (sec): 60-90 (Karen Ledgerwood, RN) Duration Criteria: Less than Two 120 Second Contractions (Karen Ledgerwood, RN) Pattern: Normal: <= 5 Contractions in 10 Minutes (Karen Ledgerwood, RN) Resting Tone (Palpate): Relaxed (Karen Ledgerwood, RN) Monitor Mode: External US (Karen Ledgerwood, RN) FHR Baseline Rate : 135 (Karen Ledgerwood, RN) FHR Baseline Changes: No Baseline Change (Karen Ledgerwood, RN) Variability: Moderate 6-25 bpm (Karen Ledgerwood, RN) Accelerations: 15X15 (Karen Ledgerwood, RN) Decelerations: None (Karen Ledgerwood, RN) Datetime: 06/01/2016 01:48 NBP Sys/Alee/Mean (mmHg): 136 (QS system process) : 92 (QS system process) : 110 (QS system process) Pulse: 80 (QS system process) LaborFlag: Antepartum (QS system process) Datetime: 06/01/2016 01:30 Monitor Mode: External; Palpation (Karen Ledgerwood, RN) Frequency (min): 1.5-6.5 (Karen Ledgerwood, RN) Quality: Mild/Moderate (Karen Ledgerwood, RN) Duration (sec): 60-90 (Karen Ledgerwood, RN) Duration Criteria: Less than Two 120 Second Contractions (Karen Ledgerwood, RN) Pattern: Normal: <= 5 Contractions in 10 Minutes (Karen Ledgerwood, RN) Resting Tone (Palpate): Relaxed (Karen Ledgerwood, RN) Monitor Mode: External US (Karen Ledgerwood, RN) FHR Baseline Rate : 145 (Karen Ledgerwood, RN) FHR Baseline Changes: No Baseline Change (Karen Ledgerwood, RN) Variability: Moderate 6-25 bpm (Karen Ledgerwood, RN) Accelerations: 15X15 (Karen Ledgerwood, RN) Decelerations: None (Karen Ledgerwood, RN) Datetime: 06/01/2016 01:18 NBP Sys/Alee/Mean (mmHg): 145 (QS system process) : 88 (QS system process) : 112 (QS system process) Pulse: 91 (QS system process) LaborFlag: Antepartum (QS system process) Datetime: 06/01/2016 01:04 Patient Care Comments: pt vomited (Karen Ledgerwood, RN) Communication: RN at Bedside (Karen Ledgerwood, RN) Datetime: 06/01/2016 01:00 Monitor Mode: External; Palpation (Karen Ledgerwood, RN) Frequency (min): 2.5-4.5 (Karen Ledgerwood, RN) Quality: Mild/Moderate (Karen Ledgerwood, RN) Duration (sec): 60-80 (Karen Ledgerwood, RN) Duration Criteria: Less than Two 120 Second Contractions (Karen Ledgerwood, RN) Pattern: Normal: <= 5 Contractions in 10 Minutes (Karen Ledgerwood, RN) Resting Tone (Palpate): Relaxed (Karen Ledgerwood, RN) Monitor Mode: External US (Karen Ledgerwood, RN) FHR Baseline Rate : 135 (Karen Ledgerwood, RN) FHR Baseline Changes: No Baseline Change (Karen Ledgerwood, RN) Variability: Moderate 6-25 bpm (Karen Ledgerwood, RN) Accelerations: 10X10 (Karen Ledgerwood, RN) Decelerations: None (Karen Ledgerwood, RN) Datetime: 06/01/2016 00:48 NBP Sys/Alee/Mean (mmHg): 137 (QS system process) : 73 (QS system process) : 98 (QS system process) Pulse: 90 (QS system process) Respirations: 15 (Karen Ledgerwood, RN) LaborFlag: Antepartum (QS system process) Datetime: 06/01/2016 00:36 Patient Care Comments: pt reports that she vomited within 15 minutes of taking Ambien, nurse did not see pills, Dr Ceballos notified. (Karen Ledgerwood, RN) Datetime: 06/01/2016 00:30 Monitor Mode: External; Palpation (Karen Ledgerwood, RN) Frequency (min): irritability (Karen Ledgerwood, RN) Resting Tone (Palpate): Relaxed (Karen Ledgerwood, RN) Monitor Mode: External US (Karen Ledgerwood, RN) FHR Baseline Rate : 145 (Karen Ledgerwood, RN) FHR Baseline Changes: No Baseline Change (Karen Ledgerwood, RN) Variability: Moderate 6-25 bpm (Karen Ledgerwood, RN) Accelerations: 15X15 (Karen Ledgerwood, RN) Decelerations: None (Karen Ledgerwood, RN) Antibiotics: Penicillin IV (Units) @ [id number] (Karen Ledgerwood, RN) Datetime: 06/01/2016 00:22 Patient Position/Activity: Right Extreme (Karen Ledgerwood, RN) Datetime: 06/01/2016 00:18 NBP Sys/Alee/Mean (mmHg): 135 (QS system process) : 75 (QS system process) : 99 (QS system process) Pulse: 88 (QS system process) LaborFlag: Antepartum (QS system process) Datetime: 06/01/2016 00:15 Analgesics/Sedatives: Ambien (mg) @ 10 (Karen Ledgerwood, RN) Datetime: 06/01/2016 00:00 Monitor Mode: External; Palpation (Karen Ledgerwood, RN) Frequency (min): 2.5-4.5 (Karen Ledgerwood, RN) Quality: Mild/Moderate (Karen Ledgerwood, RN) Duration (sec): 60-80 (Karen Ledgerwood, RN) Duration Criteria: Less than Two 120 Second Contractions (Karen Ledgerwood, RN) Pattern: Normal: <= 5 Contractions in 10 Minutes (Karen Ledgerwood, RN) Resting Tone (Palpate): Relaxed (Karen Ledgerwood, RN) Monitor Mode: External US (Karen Ledgerwood, RN) FHR Baseline Rate : 145 (Karen Ledgerwood, RN) FHR Baseline Changes: No Baseline Change (Karen Ledgerwood, RN) Variability: Moderate 6-25 bpm (Karen Ledgerwood, RN) Accelerations: 15X15 (Karen Ledgerwood, RN) Decelerations: None (Karen Ledgerwood, RN) Antiemetics/Antacids: Zofran IV (mg) @ 8 (Karen Ledgerwood, RN) Cervical Ripening Agents: Cytotec @ 25 (Karen Ledgerwood, RN) Medication Comments: 25 mcg po (Karen Ledgerwood, RN) Datetime: 05/31/2016 23:48 NBP Sys/Alee/Mean (mmHg): 128 (QS system process) : 88 (QS system process) : 102 (QS system process) Pulse: 90 (QS system process) LaborFlag: Antepartum (QS system process) Datetime: 05/31/2016 23:47 Dilatation (cm): 1.5 (Karen Naranjo, RN) Effacement (%): 50 (Karen Naranjo, RN) Station: -2 (Karen Naranjo, RN) Exam by: Leonid Naranjo RN (Karen Naranjo, RN) Datetime: 05/31/2016 23:30 Monitor Mode: External; Palpation (Karen Naranjo, RN) Frequency (min): 2.5-5.5 (Karen Naranjo, RN) Quality: Mild/Moderate (Karen Naranjo RN) Duration (sec): 60-80 (Karen Naranjo, RN) Duration Criteria: Less than Two 120 Second Contractions (Karen Naranjo, RN) Pattern: Normal: <= 5 Contractions in 10 Minutes (Karen Naranjo, RN) Resting Tone (Palpate): Relaxed (Karen Ledgerwood, RN) Monitor Mode: External US (Karen Ledgerwood, RN) FHR Baseline Rate : 145 (Karen Ledgerwood, RN) FHR Baseline Changes: No Baseline Change (Karen Ledgerwood, RN) Variability: Moderate 6-25 bpm (Karen Ledgerwood, RN) Accelerations: 15X15 (Karen Ledgerwood, RN) Decelerations: Early (Karen Ledgerwood, RN) Datetime: 05/31/2016 23:19 NBP Sys/Alee/Mean (mmHg): 135 (QS system process) : 82 (QS system process) : 104 (QS system process) Pulse: 86 (QS system process) LaborFlag: Antepartum (QS system process) Datetime: 05/31/2016 23:07 NBP Sys/Alee/Mean (mmHg): 155 (QS system process) : 89 (QS system process) : 116 (QS system process) Pulse: 88 (QS system process) LaborFlag: Antepartum (QS system process) Datetime: 05/31/2016 23:06 NBP Sys/Alee/Mean (mmHg): 162 (QS system process) : 96 (QS system process) : 120 (QS system process) Pulse: 84 (QS system process) LaborFlag: Antepartum (QS system process) Datetime: 05/31/2016 23:00 Monitor Mode: External; Palpation (Karen Ledgerwood, RN) Frequency (min): 2-5 (Karen Ledgerwood, RN) Quality: Mild/Moderate (Karen Ledgerwood, RN) Duration (sec): 70-80 (Karen Ledgerwood, RN) Duration Criteria: Less than Two 120 Second Contractions (Karen Ledgerwood, RN) Pattern: Normal: <= 5 Contractions in 10 Minutes (Karen Ledgerwood, RN) Resting Tone (Palpate): Relaxed (Karen Ledgerwood, RN) Monitor Mode: External US (Karen Ledgerwood, RN) FHR Baseline Rate : 145 (Karen Ledgerwood, RN) FHR Baseline Changes: No Baseline Change (Karen Ledgerwood, RN) Variability: Moderate 6-25 bpm (Karen Ledgerwood, RN) Accelerations: 15X15 (Karen Ledgerwood, RN) Decelerations: None (Karen Ledgerwood, RN) Datetime: 05/31/2016 22:48 NBP Sys/Alee/Mean (mmHg): 168 (QS system process) : 93 (QS system process) : 121 (QS system process) Pulse: 79 (QS system process) LaborFlag: Antepartum (QS system process) Datetime: 05/31/2016 22:30 Monitor Mode: External; Palpation (Karen Jonnathangeranabelle, RN) Frequency (min): 2-6 (Karen Ledgerwood, RN) Quality: Mild/Moderate (Karen Ledgerwood, RN) Duration (sec): 70-90 (Karen Ledgerwood, RN) Duration Criteria: Less than Two 120 Second Contractions (Karen Ledgerwood, RN) Pattern: Normal: <= 5 Contractions in 10 Minutes (Karen Ledgerwood, RN) Resting Tone (Palpate): Relaxed (Karen Ledgerwood, RN) Monitor Mode: External US (Karen Naranjo, RN) FHR Baseline Rate : 145 (Karen Ledgerwood, RN) FHR Baseline Changes: No Baseline Change (Karen Ledgerwood, RN) Variability: Moderate 6-25 bpm (Karen Ledgerwood, RN) Accelerations: 15X15 (Karen Ledgerwood, RN) Decelerations: None (Karen Ledgerwood, RN) Datetime: 05/31/2016 22:22 I/O Interventions: Up to BR (Karen Ledgerwood, RN) Communication: RN at Bedside (Karen Ledgerwood, RN) Datetime: 05/31/2016 22:18 NBP Sys/Alee/Mean (mmHg): 140 (QS system process) : 90 (QS system process) : 110 (QS system process) Pulse: 83 (QS system process) LaborFlag: Antepartum (QS system process) Datetime: 05/31/2016 22:00 Monitor Mode: External; Palpation (Karen Ledgerwood, RN) Frequency (min): 4-7.5 (Karen Ledgerwood, RN) Quality: Mild/Moderate (Karen Ledgerwood, RN) Duration (sec): 80-100 (Karen Ledgerwood, RN) Duration Criteria: Less than Two 120 Second Contractions (Karen Ledgerwood, RN) Pattern: Normal: <= 5 Contractions in 10 Minutes (Karen Ledgerwood, RN) Resting Tone (Palpate): Relaxed (Karen Ledgerwood, RN) Monitor Mode: External US (Karen Ledgerwood, RN) FHR Baseline Rate : 145 (Karen Ledgerwood, RN) FHR Baseline Changes: No Baseline Change (Karen Ledgerwood, RN) Variability: Moderate 6-25 bpm (Karen Ledgerwood, RN) Accelerations: 15X15 (Karen Ledgerwood, RN) Decelerations: None (Karen Ledgerwood, RN)
[2016-06-01] MEDS ORDERED: FENTANYL/BUPIVACAINE/NS/PF 200 MCG/100 ML RTUINJ EPI ONE (08:10)
[2016-06-01] MEDS ORDERED: EPHEDRINE SULFATE INJ 50 MG/1 ML AMPULE ONE (08:10)
[2016-06-01] MEDS ORDERED: BUPIVACAINE HCL 0.25 % INJ/PF (2.5 MG/1 ML) 30 ML VIAL ONE (08:10)
[2016-06-01] MEDS ORDERED: PENICILLIN G-K 5 MILLION UNIT VIAL IV SCH (08:30)
--- NOTE | 2016-06-01 10:01 | L&D Flow Sheet ---
LD Flowsheet Datetime Report Generated by CPN: 06/01/2016 10:00 Datetime: 06/01/2016 09:51 NBP Sys/Alee/Mean (mmHg): 140 (QS system process) : 73 (QS system process) : 99 (QS system process) Pulse: 82 (QS system process) LaborFlag: Antepartum (QS system process) Datetime: 06/01/2016 09:46 Pain Scale: 0 (Shanna Gould, RN) Pain Presence: None/Denies (Shanna Bryanna, RN) Pain Type: N/A (Shanna Bryanna, RN) Pain Relief Measures: Comfort Measures (Shanna Bryanna, RN) Comfort Measures: Family Support (Shanna Bryanna, RN) LaborFlag: Antepartum (QS system process) Datetime: 06/01/2016 09:38 Patient Position/Activity: Left Lateral (Shanna Bryanna, RN) Datetime: 06/01/2016 09:32 Patient Position/Activity: Left Tilt (Shanna Bryanna, RN) Datetime: 06/01/2016 09:30 NBP Sys/Alee/Mean (mmHg): 131 (QS system process) : 68 (QS system process) : 93 (QS system process) Pulse: 118 (QS system process) LaborFlag: Antepartum (QS system process) Datetime: 06/01/2016 09:29 NBP Sys/Alee/Mean (mmHg): 120 (QS system process) : 60 (QS system process) : 83 (QS system process) Pulse: 120 (QS system process) LaborFlag: Antepartum (QS system process) Datetime: 06/01/2016 09:28 NBP Sys/Alee/Mean (mmHg): 125 (QS system process) : 58 (QS system process) : 83 (QS system process) Pulse: 131 (QS system process) I/O Interventions: John Cath Inserted (Shanna Gould RN) Patient Care Comments: pt tolerated procedure well (Shanna Gould RN) LaborFlag: Antepartum (QS system process) Datetime: 06/01/2016 09:27 NBP Sys/Alee/Mean (mmHg): 138 (QS system process) : 60 (QS system process) : 87 (QS system process) Pulse: 127 (QS system process) LaborFlag: Antepartum (QS system process) Datetime: 06/01/2016 09:26 NBP Sys/Alee/Mean (mmHg): 143 (QS system process) : 65 (QS system process) : 93 (QS system process) Pulse: 122 (QS system process) LaborFlag: Antepartum (QS system process) Datetime: 06/01/2016 09:25 NBP Sys/Alee/Mean (mmHg): 137 (QS system process) : 56 (QS system process) : 89 (QS system process) Pulse: 123 (QS system process) LaborFlag: Antepartum (QS system process) Datetime: 06/01/2016 09:24 NBP Sys/Alee/Mean (mmHg): 141 (QS system process) : 64 (QS system process) : 92 (QS system process) Pulse: 127 (QS system process) LaborFlag: Antepartum (QS system process) Datetime: 06/01/2016 09:23 NBP Sys/Alee/Mean (mmHg): 138 (QS system process) : 62 (QS system process) : 89 (QS system process) Pulse: 130 (QS system process) LaborFlag: Antepartum (QS system process) Datetime: 06/01/2016 09:22 NBP Sys/Alee/Mean (mmHg): 142 (QS system process) : 98 (QS system process) : 113 (QS system process) Pulse: 133 (QS system process) LaborFlag: Antepartum (QS system process) Datetime: 06/01/2016 09:21 NBP Sys/Alee/Mean (mmHg): 143 (QS system process) : 74 (QS system process) : 101 (QS system process) Pulse: 131 (QS system process) LaborFlag: Antepartum (QS system process) Datetime: 06/01/2016 09:20 NBP Sys/Alee/Mean (mmHg): 145 (QS system process) : 85 (QS system process) : 109 (QS system process) Pulse: 126 (QS system process) Pulse: 125 (QS system process) SpO2 (%): 98 (QS system process) LaborFlag: Antepartum (QS system process) Datetime: 06/01/2016 09:19 NBP Sys/Alee/Mean (mmHg): 139 (QS system process) : 82 (QS system process) : 105 (QS system process) Pulse: 123 (QS system process) LaborFlag: Antepartum (QS system process) Datetime: 06/01/2016 09:18 NBP Sys/Alee/Mean (mmHg): 136 (QS system process) : 73 (QS system process) : 92 (QS system process) Pulse: 120 (QS system process) LaborFlag: Antepartum (QS system process) Datetime: 06/01/2016 09:17 NBP Sys/Alee/Mean (mmHg): 141 (QS system process) : 84 (QS system process) : 107 (QS system process) Pulse: 120 (QS system process) Procedure Verify: Correct Patient Identity; Correct Side and Site are Marked (Shanna Gould RN) Anesthesia Plans: Epidural (Shanna Gould RN) Epidural Positioning: Sitting (Shanna Gould RN) Epidural Procedure: Test Dose (Shanna Gould RN) LaborFlag: Antepartum (QS system process) Datetime: 06/01/2016 09:15 Pulse: 119 (QS system process) SpO2 (%): 97 (QS system process) LaborFlag: Antepartum (QS system process) Datetime: 06/01/2016 09:10 Pulse: 109 (QS system process) SpO2 (%): 97 (QS system process) LaborFlag: Antepartum (QS system process) Datetime: 06/01/2016 08:48 NBP Sys/Alee/Mean (mmHg): 169 (QS system process) : 79 (QS system process) : 113 (QS system process) Pulse: 96 (QS system process) LaborFlag: Antepartum (QS system process) Datetime: 06/01/2016 08:30 Monitor Mode: External (Shanna Bryanna, RN) Frequency (min): 5-6 (Shanna Bryanna, RN) Quality: Mild/Moderate (Shanna Bryanna, RN) Duration (sec): 60-90 (Shanna Bryanna, RN) Resting Tone (Palpate): Relaxed (Shanna Bryanna, RN) Monitor Mode: External US (Shanna Bryanna, RN) FHR Baseline Rate : 125 (Shanna Bryanna, RN) Variability: Moderate 6-25 bpm (Shanna Bryanna, RN) Accelerations: 15X15 (Shanna Bryanna, RN) Decelerations: None (Shanna Bryanna, RN) Datetime: 06/01/2016 08:13 Patient Care Comments: pt sitting up in bed, FHR monitor tracing maternal HR (Shanna Gould, TJ) Datetime: 06/01/2016 08:08 Procedure Verify: Correct Patient Identity (Shanna Gould RN) Anesthesia Plans: Epidural (Shanna Gould RN) Anesthesia Comments: LR bolus started (Shanna Gould, TJ) Datetime: 06/01/2016 08:06 Dilatation (cm): 4.5 (Shanna Gould RN) Effacement (%): 80 (Shanna Gould RN) Station: -1 (Shanna Gould RN) Exam by: H. Jaylon CNM (Shanna Bryanna, RN) Datetime: 06/01/2016 08:05 Communication Comments: Delicia Powell CNM at bedside (Shanna Bryanna, RN) Datetime: 06/01/2016 08:00 Monitor Mode: External; Palpation (Shanna Bryanna, RN) Frequency (min): 3-6 (Shanna Bryanna, RN) Quality: Mild/Moderate (Shanna Bryanna, RN) Duration (sec): 60-90 (Shanna Bryanna, RN) Resting Tone (Palpate): Relaxed (Shanna Bryanna, RN) Monitor Mode: External US (Shanna Bryanna, RN) FHR Baseline Rate : 125 (Shanna Bryanna, RN) Variability: Moderate 6-25 bpm (Shanna Bryanna, RN) Accelerations: 15X15 (Shanna Bryanna, RN) Decelerations: None (Shanna Bryanna, RN)
[2016-06-01] MEDS ORDERED: OXYTOCIN/NORMAL SALINE 20 UNIT/1,000 ML RTUINJ ONE (10:17)
--- NOTE | 2016-06-01 12:01 | L&D Flow Sheet ---
LD Flowsheet Datetime Report Generated by CPN: 06/01/2016 12:00 Datetime: 06/01/2016 11:50 NBP Sys/Alee/Mean (mmHg): 136 (QS system process) : 65 (QS system process) : 90 (QS system process) Pulse: 86 (QS system process) LaborFlag: Antepartum (QS system process) Datetime: 06/01/2016 11:35 NBP Sys/Alee/Mean (mmHg): 128 (QS system process) : 58 (QS system process) : 86 (QS system process) Pulse: 82 (QS system process) LaborFlag: Antepartum (QS system process) Datetime: 06/01/2016 11:25 Pitocin (milliunit): Pitocin Increased to (milliunits) @ 6 (Shanna Bryanna, RN) Datetime: 06/01/2016 11:20 NBP Sys/Alee/Mean (mmHg): 136 (QS system process) : 72 (QS system process) : 95 (QS system process) Pulse: 88 (QS system process) LaborFlag: Antepartum (QS system process) Datetime: 06/01/2016 11:15 Monitor Mode: External; Palpation (Shanna Bryanna, RN) Frequency (min): x1 (Shanna Bryanna, RN) Quality: Mild/Moderate (Shanna Bryanna, RN) Duration (sec): 90 (Shanna Bryanna, RN) Resting Tone (Palpate): Relaxed (Shanna Bryanna, RN) Monitor Mode: External US (Shanna Bryanna, RN) FHR Baseline Rate : 115 (Shanna Bryanna, RN) Variability: Moderate 6-25 bpm (Shanna Bryanna, RN) Accelerations: 15X15 (Shanna Bryanna, RN) Decelerations: None (Shanna Bryanna, RN) Datetime: 06/01/2016 11:07 Patient Position/Activity: Right Lateral (Shanna Bryanna, RN) Datetime: 06/01/2016 11:05 NBP Sys/Alee/Mean (mmHg): 128 (QS system process) : 60 (QS system process) : 85 (QS system process) Pulse: 69 (QS system process) Communication: RN at Bedside (Shanna Bryanna, RN) LaborFlag: Antepartum (QS system process) Datetime: 06/01/2016 11:00 Monitor Mode: External (Shanna Bryanna, RN) Frequency (min): x1 (Shanna Bryanna, RN) Quality: Mild/Moderate (Shanna Bryanna, RN) Duration (sec): 70 (Shanna Bryanna, RN) Resting Tone (Palpate): Relaxed (Shanna Bryanna, RN) Monitor Mode: External US (Shanna Bryanna, RN) FHR Baseline Rate : 120 (Shanna Bryanna, RN) Variability: Moderate 6-25 bpm (Shanna Bryanna, RN) Accelerations: 10X10 (Shanna Bryanna, RN) Decelerations: None (Shanna Bryanna, RN) Datetime: 06/01/2016 10:58 Pitocin (milliunit): Pitocin Increased to (milliunits) @ 4 (Shanna Bryanna, RN) Datetime: 06/01/2016 10:50 NBP Sys/Alee/Mean (mmHg): 129 (QS system process) : 62 (QS system process) : 86 (QS system process) Pulse: 77 (QS system process) LaborFlag: Antepartum (QS system process) Datetime: 06/01/2016 10:45 Monitor Mode: External (Shanna Bryanna, RN) Frequency (min): 6 (Shanna Bryanna, RN) Quality: Mild/Moderate (Shanna Bryanna, RN) Duration (sec): 70-100 (Shanna Braynna, RN) Resting Tone (Palpate): Relaxed (Shanna Bryanna, RN) Comments: unable to determine baseline (Shanna Bryanna, RN) Datetime: 06/01/2016 10:35 NBP Sys/Alee/Mean (mmHg): 134 (QS system process) : 61 (QS system process) : 88 (QS system process) Pulse: 81 (QS system process) LaborFlag: Antepartum (QS system process) Datetime: 06/01/2016 10:30 Monitor Mode: External (Shanna Bryanna, RN) Frequency (min): 8 (Shanna Bryanna, RN) Quality: Mild/Moderate (Shanna Bryanna, RN) Duration (sec): 140-160 (Shanna Bryanna, RN) Resting Tone (Palpate): Relaxed (Shanna Bryanna, RN) Monitor Mode: External US (Shanna Bryanna, RN) FHR Baseline Rate : 125 (Shanna Bryanna, RN) Variability: Moderate 6-25 bpm (Shanna Bryanna, RN) Accelerations: 15X15 (Shanna Bryanna, RN) Decelerations: None (Shanna Bryanna, RN) Datetime: 06/01/2016 10:26 Pitocin (milliunit): Pitocin Started (milliunits) @ 2 (Shanna Bryanna, RN) Datetime: 06/01/2016 10:25 Patient Care Comments: pt asleep in bed laying on her left side (Shanna Bryanna, RN) Datetime: 06/01/2016 10:20 NBP Sys/Alee/Mean (mmHg): 135 (QS system process) : 62 (QS system process) : 89 (QS system process) Pulse: 78 (QS system process) LaborFlag: Antepartum (QS system process) Datetime: 06/01/2016 10:15 Monitor Mode: External (Shanna Bryanna, RN) Frequency (min): irreg (Shanna Bryanna, RN) Quality: Mild/Moderate (Shanna Bryanna, RN) Resting Tone (Palpate): Relaxed (Shanna Bryanna, RN) Monitor Mode: External US (Shanna Bryanna, RN) FHR Baseline Rate : 115 (Shanna Bryanna, RN) Variability: Moderate 6-25 bpm (Shanna Bryanna, RN) Accelerations: 15X15 (Shanna Bryanna, RN) Decelerations: None (Shanna Bryanna, RN) Datetime: 06/01/2016 10:05 NBP Sys/Alee/Mean (mmHg): 137 (QS system process) : 69 (QS system process) : 94 (QS system process) Pulse: 80 (QS system process) LaborFlag: Antepartum (QS system process) Datetime: 06/01/2016 10:01 Communication Comments: Dr. Morse on unit, FHR strip reviewed by , order recieved to start pitocin (Shanna Gould, TJ) Datetime: 06/01/2016 10:00 Monitor Mode: External (Shanna Gould RN) Frequency (min): irreg (Shanna Gould, RN) Quality: Mild/Moderate (Shanna Gould, RN) Resting Tone (Palpate): Relaxed (Shanna Gould, RN) Monitor Mode: External US (Shanna Gould RN) FHR Baseline Rate : 125 (Shanna Gould RN) Variability: Moderate 6-25 bpm (Shanna Gould, RN) Accelerations: None (Shanna Gould, RN) Decelerations: None (Shanna Gould RN)
--- NOTE | 2016-06-01 14:01 | L&D Flow Sheet ---
LD Flowsheet Datetime Report Generated by CPN: 06/01/2016 14:00 Datetime: 06/01/2016 13:51 NBP Sys/Alee/Mean (mmHg): 142 (QS system process) : 74 (QS system process) : 99 (QS system process) Pulse: 105 (QS system process) LaborFlag: Antepartum (QS system process) Datetime: 06/01/2016 13:45 Pitocin (milliunit): Pitocin Increased to (milliunits) @ 14 (Shanna Bryanan, RN) Datetime: 06/01/2016 13:42 Patient Position/Activity: Peanut Ball; Right Extreme (Shanna Bryanna, RN) Datetime: 06/01/2016 13:36 NBP Sys/Alee/Mean (mmHg): 138 (QS system process) : 70 (QS system process) : 97 (QS system process) Pulse: 93 (QS system process) LaborFlag: Antepartum (QS system process) Datetime: 06/01/2016 13:20 NBP Sys/Alee/Mean (mmHg): 136 (QS system process) : 76 (QS system process) : 95 (QS system process) Pulse: 106 (QS system process) LaborFlag: Antepartum (QS system process) Datetime: 06/01/2016 13:15 Monitor Mode: External (Shanna Bryanna, RN) Frequency (min): 1-5 (Shanna Bryanna, RN) Quality: Moderate (Shanna Bryanna, RN) Duration (sec): 50-80 (Shanna Bryanna, RN) Resting Tone (Palpate): Relaxed (Shanna Bryanna, RN) Monitor Mode: External US (Shanna Bryanna, RN) FHR Baseline Rate : 125 (Shanna Bryanna, RN) Variability: Moderate 6-25 bpm (Shanna Bryanna, RN) Accelerations: None (Shanna Bryanna, RN) Decelerations: None (Shanna Bryanna, RN) Datetime: 06/01/2016 13:13 Pitocin (milliunit): Pitocin Increased to (milliunits) @ 12 (Shanna Bryanna, RN) Datetime: 06/01/2016 13:06 NBP Sys/Alee/Mean (mmHg): 132 (QS system process) : 70 (QS system process) : 93 (QS system process) Pulse: 97 (QS system process) LaborFlag: Antepartum (QS system process) Datetime: 06/01/2016 13:00 Monitor Mode: External (Shanna Bryanna, RN) Frequency (min): 2-3 (Shanna Bryanna, RN) Quality: Moderate (Shanna Bryanna, RN) Duration (sec): 70-90 (Shanna Bryanna, RN) Resting Tone (Palpate): Relaxed (Shanna Bryanna, RN) Monitor Mode: External US (Shanna Bryanna, RN) FHR Baseline Rate : 125 (Shanna Bryanna, RN) Variability: Moderate 6-25 bpm (Shanna Bryanna, RN) Accelerations: 15X15 (Shanna Bryanna, RN) Decelerations: None (Shanna Bryanna, RN) Datetime: 06/01/2016 12:51 NBP Sys/Alee/Mean (mmHg): 140 (QS system process) : 66 (QS system process) : 95 (QS system process) Pulse: 95 (QS system process) LaborFlag: Antepartum (QS system process) Datetime: 06/01/2016 12:45 Monitor Mode: External (Shanna Bryanna, RN) Frequency (min): 2-5 (Shanna Bryanna, RN) Quality: Moderate (Shanna Bryanna, RN) Duration (sec): 60-90 (Shanna Bryanna, RN) Resting Tone (Palpate): Relaxed (Shanna Bryanna, RN) Monitor Mode: External US (Shanna Bryanna, RN) FHR Baseline Rate : 125 (Shanna Bryanna, RN) Variability: Moderate 6-25 bpm (Shanna Rbyanna, RN) Accelerations: 15X15 (Shanna Bryanna, RN) Decelerations: None (Shanna Bryanna, RN) Datetime: 06/01/2016 12:39 Pitocin (milliunit): Pitocin Increased to (milliunits) @ (Annotations: 10) (Shanna Gould RN) Antibiotics: 2.5 million units PCN G IV (Shanna Gould RN) Datetime: 06/01/2016 12:35 NBP Sys/Alee/Mean (mmHg): 141 (QS system process) : 68 (QS system process) : 96 (QS system process) Pulse: 88 (QS system process) LaborFlag: Antepartum (QS system process) Datetime: 06/01/2016 12:31 Communication Comments: H. Andre CNM on unit, FHR strip reviewed by CNM. ORder recieved to continue increasing pitocin (Shanna Bryanna, RN) Datetime: 06/01/2016 12:30 Monitor Mode: External (Shanna Bryanna, RN) Frequency (min): 2-4 (Shanna Bryanna, RN) Quality: Moderate (Shanna Bryanna, RN) Duration (sec): 60-90 (Shanna Bryanna, RN) Resting Tone (Palpate): Relaxed (Shanna Bryanna, RN) Monitor Mode: External US (Shanna Bryanna, RN) FHR Baseline Rate : 120 (Shanna Bryanna, RN) Variability: Moderate 6-25 bpm (Shanna Bryanna, RN) Accelerations: 15X15 (Shanna Bryanna, RN) Decelerations: Late (Shanna Bryanna, RN) Datetime: 06/01/2016 12:25 Patient Position/Activity: Left Lateral (Shanna Bryanna, RN) Datetime: 06/01/2016 12:20 NBP Sys/Alee/Mean (mmHg): 137 (QS system process) : 64 (QS system process) : 92 (QS system process) Pulse: 94 (QS system process) LaborFlag: Antepartum (QS system process) Datetime: 06/01/2016 12:15 Monitor Mode: External (Shanna Bryanna, RN) Frequency (min): 3 (Shanna Bryanna, RN) Quality: Mild/Moderate (Shanna Bryanna, RN) Duration (sec): 50-90 (Shanna Bryanna, RN) Resting Tone (Palpate): Relaxed (Shanna Bryanna, RN) Monitor Mode: External US (Shanna Bryanna, RN) FHR Baseline Rate : 120 (Shanna Bryanna, RN) Variability: Moderate 6-25 bpm (Shanna Bryanna, RN) Accelerations: None (Shanna Bryanna, RN) Decelerations: None (Shanna Bryanna, RN) Datetime: 06/01/2016 12:05 NBP Sys/Alee/Mean (mmHg): 134 (QS system process) : 72 (QS system process) : 95 (QS system process) Pulse: 96 (QS system process) LaborFlag: Antepartum (QS system process) Datetime: 06/01/2016 12:00 Monitor Mode: External (Shanna Bryanna, RN) Frequency (min): 2-6 (Shanna Bryanna, RN) Duration (sec): 50-80 (Shanna Bryanna, RN) Resting Tone (Palpate): Relaxed (Shanna Bryanna, RN) Monitor Mode: External US (Shanna Bryanna, RN) FHR Baseline Rate : 120 (Shanna Bryanna, RN) Variability: Moderate 6-25 bpm (Shanna Bryanna, RN) Accelerations: 15X15 (Shanna Bryanna, RN) Decelerations: None (Shanna Bryanna, RN)
--- NOTE | 2016-06-01 16:01 | L&D Flow Sheet ---
LD Flowsheet Datetime Report Generated by CPN: 06/01/2016 16:00 Datetime: 06/01/2016 15:51 NBP Sys/Alee/Mean (mmHg): 142 (QS system process) : 94 (QS system process) : 113 (QS system process) Pulse: 101 (QS system process) LaborFlag: Antepartum (QS system process) Datetime: 06/01/2016 15:35 NBP Sys/Alee/Mean (mmHg): 138 (QS system process) : 82 (QS system process) : 102 (QS system process) Pulse: 86 (QS system process) LaborFlag: Antepartum (QS system process) Datetime: 06/01/2016 15:20 NBP Sys/Alee/Mean (mmHg): 141 (QS system process) : 81 (QS system process) : 105 (QS system process) Pulse: 85 (QS system process) LaborFlag: Antepartum (QS system process) Datetime: 06/01/2016 15:15 Monitor Mode: External (Shanna Bryanna, RN) Frequency (min): 2-5 (Shanna Bryanna, RN) Quality: Moderate (Shanna Bryanna, RN) Duration (sec): 50-80 (Shanna Bryanna, RN) Resting Tone (Palpate): Relaxed (Shanna Bryanna, RN) Monitor Mode: External US (Shanna Bryanna, RN) FHR Baseline Rate : 125 (Shanna Bryanna, RN) Variability: Moderate 6-25 bpm (Shanna Bryanna, RN) Accelerations: 15X15 (Shanna Rbyanna, RN) Decelerations: None (Shanna Bryanna, RN) Datetime: 06/01/2016 15:06 NBP Sys/Alee/Mean (mmHg): 146 (QS system process) : 78 (QS system process) : 106 (QS system process) Pulse: 82 (QS system process) LaborFlag: Antepartum (QS system process) Datetime: 06/01/2016 15:00 Monitor Mode: External (Shanna Bryanna, RN) Frequency (min): 3-4 (Shanna Bryanna, RN) Quality: Moderate (Shanna Bryanna, RN) Duration (sec): 60-90 (Shanna Bryanna, RN) Resting Tone (Palpate): Relaxed (Shanna Bryanna, RN) Monitor Mode: External US (Shanna Bryanna, RN) FHR Baseline Rate : 120 (Shanna Bryanna, RN) Variability: Moderate 6-25 bpm (Shanna Bryanna, RN) Accelerations: 15X15 (Shanna Bryanna, RN) Decelerations: None (Shanna Bryanna, RN) Datetime: 06/01/2016 14:50 NBP Sys/Alee/Mean (mmHg): 164 (QS system process) : 79 (QS system process) : 110 (QS system process) Pulse: 88 (QS system process) LaborFlag: Antepartum (QS system process) Datetime: 06/01/2016 14:45 Monitor Mode: External (Shanna Bryanna, RN) Frequency (min): 2-5 (Shanna Bryanna, RN) Quality: Moderate (Shanna Bryanna, RN) Duration (sec): 60-80 (Shanna Bryanna, RN) Resting Tone (Palpate): Relaxed (Shanna Bryanna, RN) Monitor Mode: External US (Shanna Bryanna, RN) FHR Baseline Rate : 125 (Shanna Bryanna, RN) Variability: Moderate 6-25 bpm (Shanna Bryanna, RN) Accelerations: 10X10 (Shanna Bryanna, RN) Decelerations: None (Shanna Bryanna, RN) Datetime: 06/01/2016 14:35 NBP Sys/Alee/Mean (mmHg): 167 (QS system process) : 86 (QS system process) : 113 (QS system process) Pulse: 92 (QS system process) LaborFlag: Antepartum (QS system process) Datetime: 06/01/2016 14:34 Temperature (F): 98.3 (Shanna Gould, RN) Temperature (C): 36.8 (QS system process) LaborFlag: Antepartum (QS system process) Datetime: 06/01/2016 14:33 Patient Position/Activity: Left Extreme; Peanut Ball (Shanna Bryanna, RN) Datetime: 06/01/2016 14:30 Monitor Mode: External (Shanna Bryanna, RN) Frequency (min): 2-3 (Shanna Bryanna, RN) Quality: Moderate (Shanna Bryanna, RN) Duration (sec): 60-80 (Shanna Bryanna, RN) Resting Tone (Palpate): Relaxed (Shanna Bryanna, RN) Monitor Mode: External US (Shanna Bryanna, RN) FHR Baseline Rate : 125 (Shanna Bryanna, RN) Variability: Moderate 6-25 bpm (Shanna Bryanna, RN) Accelerations: 15X15 (Shanna Bryanna, RN) Decelerations: None (Shanna Bryanna, RN) Datetime: 06/01/2016 14:20 NBP Sys/Alee/Mean (mmHg): 133 (QS system process) : 68 (QS system process) : 92 (QS system process) Pulse: 93 (QS system process) LaborFlag: Antepartum (QS system process) Datetime: 06/01/2016 14:15 Monitor Mode: External (Shanna Bryanna, RN) Frequency (min): 2-4 (Shanna Bryanna, RN) Quality: Moderate (Shanna Bryanna, RN) Duration (sec): 60-90 (Shanna Bryanna, RN) Resting Tone (Palpate): Relaxed (Shanna Bryanna, RN) Monitor Mode: External US (Shanna Bryanna, RN) FHR Baseline Rate : 120 (Shanna Bryanna, RN) Variability: Moderate 6-25 bpm (Shanna Bryanna, RN) Accelerations: 15X15 (Shanna Bryanna, RN) Decelerations: None (Shanna Bryanna, RN) Datetime: 06/01/2016 14:06 NBP Sys/Alee/Mean (mmHg): 134 (QS system process) : 66 (QS system process) : 94 (QS system process) Pulse: 101 (QS system process) LaborFlag: Antepartum (QS system process) Datetime: 06/01/2016 14:00 Monitor Mode: External (Shanna Bryanna, RN) Frequency (min): 2-4 (Shanna Bryanna, RN) Quality: Moderate (Shanna Bryanna, RN) Duration (sec): 40-80 (Shanna Bryanna, RN) Resting Tone (Palpate): Relaxed (Shanna Bryanna, RN) Monitor Mode: External US (Shanna Bryanna, RN) FHR Baseline Rate : 125 (Shanna Bryanna, RN) Variability: Moderate 6-25 bpm (Shanna Bryanna, RN) Accelerations: None (Shanna Bryanna, RN) Decelerations: None (Shanna Bryanna, RN)
[2016-06-01] MEDS ORDERED: MISOPROSTOL 0.2 MG TABLET ONE (17:01)
[2016-06-01] MEDS ORDERED: LIDOCAINE 1% INJ-PF (10 MG/ML) 30 ML SDV ONE (17:01)
--- NOTE | 2016-06-01 18:01 | L&D Flow Sheet ---
LD Flowsheet Datetime Report Generated by CPN: 06/01/2016 18:00 Datetime: 06/01/2016 17:50 NBP Sys/Alee/Mean (mmHg): 136 (QS system process) : 66 (QS system process) : 94 (QS system process) Pulse: 103 (QS system process) LaborFlag: Antepartum (QS system process) Datetime: 06/01/2016 17:29 Temperature (F): 99.4 (Shanna Gould RN) Temperature (C): 37.4 (QS system process) LaborFlag: Antepartum (QS system process) Datetime: 06/01/2016 17:22 Comments: 10 L oxygen applied via non rebreather mask (Shanna Gould, RN) Datetime: 06/01/2016 17:20 Dilatation (cm): 10.0 (Shanna Gould, RN) Effacement (%): 100 (Shanna Gould, RN) Station: 2 (Shanna Gould, RN) Exam by: H. Andre CNM (Shanna Gould, RN) Datetime: 06/01/2016 17:19 Pushing: Coached on Pushing; Urge to Push; Involuntary Pushing (Shanna Bryanna, RN) Pushing Position: Pushing with Contractions (Shanna Bryanna, RN) Pushing Progress: Descent with Pushing (Shanna Bryanna, RN) Datetime: 06/01/2016 17:18 Communication Comments: H. Andre CNM at bedside (Shanna Bryanna, RN) Datetime: 06/01/2016 17:17 Patient Position/Activity: Left Tilt (Shanna Bryanna, RN) Datetime: 06/01/2016 17:16 Medication Comments: Lr bolus started (Shanna Bryanna, RN) Datetime: 06/01/2016 17:15 Dilatation (cm): 9.5 (Shanna Bryanna, RN) Effacement (%): 100 (Shanna Bryanna, RN) Station: 2 (Shanna Bryanna, RN) Exam by: A. Bryanna RN (Shanna Bryanna, RN) Datetime: 06/01/2016 17:05 NBP Sys/Alee/Mean (mmHg): 140 (QS system process) : 70 (QS system process) : 97 (QS system process) Pulse: 104 (QS system process) LaborFlag: Antepartum (QS system process) Datetime: 06/01/2016 17:03 Patient Position/Activity: Right Extreme (Shanna Bryanna, RN) Datetime: 06/01/2016 16:57 Patient Position/Activity: Right Tilt (Shanna Bryanna, RN) Datetime: 06/01/2016 16:54 Dilatation (cm): 9.5 (Shanna Bryanna, RN) Effacement (%): 90 (Shanna Bryanna, RN) Station: 1 (Shanna Bryanna, RN) Exam by: A. Bryanna RN (Shanna Bryanna, RN) Datetime: 06/01/2016 16:50 NBP Sys/Alee/Mean (mmHg): 163 (QS system process) : 84 (QS system process) : 115 (QS system process) Pulse: 99 (QS system process) Antibiotics: Penicillin IV (Units) @ 2.5 milliom (Shanna Gould RN) LaborFlag: Antepartum (QS system process) Datetime: 06/01/2016 16:35 NBP Sys/Alee/Mean (mmHg): 149 (QS system process) : 83 (QS system process) : 110 (QS system process) Pulse: 93 (QS system process) LaborFlag: Antepartum (QS system process) Datetime: 06/01/2016 16:30 Pain Assessment Comments: pt is in no pain but states feeling intermittent pressure (Shanna Gould, RN) LaborFlag: Antepartum (QS system process) Datetime: 06/01/2016 16:25 Temperature (F): 99.2 (Shanna Gould, RN) Temperature (C): 37.3 (QS system process) LaborFlag: Antepartum (QS system process) Datetime: 06/01/2016 16:21 NBP Sys/Alee/Mean (mmHg): 133 (QS system process) : 89 (QS system process) : 107 (QS system process) Pulse: 101 (QS system process) LaborFlag: Antepartum (QS system process) Datetime: 06/01/2016 16:05 NBP Sys/Alee/Mean (mmHg): 140 (QS system process) : 83 (QS system process) : 106 (QS system process) Pulse: 96 (QS system process) LaborFlag: Antepartum (QS system process) Datetime: 06/01/2016 16:00 NBP Sys/Alee/Mean (mmHg): 146 (QS system process) : 89 (QS system process) : 111 (QS system process) Pulse: 94 (QS system process) Monitor Mode: External (Shanna Gould RN) Frequency (min): 3-4 (Shanna Gould RN) Quality: Moderate (Shanna Gould RN) Duration (sec): 60-80 (Shanna Gould, RN) Resting Tone (Palpate): Relaxed (Shanna Gould, RN) Monitor Mode: External US (Shanna Gould RN) FHR Baseline Rate : 125 (Shanna Gould, RN) Variability: Moderate 6-25 bpm (Shanna Gould, RN) Accelerations: None (Shanna Gould, RN) Decelerations: None (Shanna Gould, RN) Patient Position/Activity: Tailors (Shanna Gould RN) LaborFlag: Antepartum (QS system process)
[2016-06-01] MEDS ORDERED: ACETAMINOPHEN WITH CODEINE #3 TABLET PO PRN ×2 (18:56)
[2016-06-01] MEDS ORDERED: DIBUCAINE 1% OINTMENT 28 GM TP PRN (18:56)
[2016-06-01] MEDS ORDERED: ZOLPIDEM TARTRATE 5 MG TABLET PO PRN (18:56)
[2016-06-01] MEDS ORDERED: OXYTOCIN/NORMAL SALINE 1,000 ML IV PRN (18:56)
[2016-06-01] MEDS ORDERED: DIPH/PERTUSS(ACELL)/TETANUS VAC/PF 0.5 ML SYR (>=10YO) IM PRN (18:56)
[2016-06-01] MEDS ORDERED: BENZOCAINE/MENTHOL AEROSOL SPRAY 56 ML TOP PRN (18:56)
[2016-06-01] MEDS ORDERED: MEASLES,MUMPS&RUBELLA VACC/PF 0.5 ML VIAL SUBCUT PRN (18:56)
--- NOTE | 2016-06-01 20:01 | L&D Flow Sheet ---
LD Flowsheet Datetime Report Generated by CPN: 06/01/2016 20:00 Datetime: 06/01/2016 19:50 NBP Sys/Alee/Mean (mmHg): 133 (QS system process) : 73 (QS system process) : 98 (QS system process) Pulse: 107 (QS system process) LaborFlag: Antepartum (QS system process) Datetime: 06/01/2016 19:35 NBP Sys/Alee/Mean (mmHg): 123 (QS system process) : 78 (QS system process) : 96 (QS system process) Pulse: 108 (QS system process) LaborFlag: Antepartum (QS system process) Datetime: 06/01/2016 19:20 NBP Sys/Alee/Mean (mmHg): 121 (QS system process) : 69 (QS system process) : 84 (QS system process) Pulse: 123 (QS system process) LaborFlag: Antepartum (QS system process) Datetime: 06/01/2016 19:05 NBP Sys/Alee/Mean (mmHg): 115 (QS system process) : 65 (QS system process) : 84 (QS system process) Pulse: 102 (QS system process) LaborFlag: Antepartum (QS system process) Datetime: 06/01/2016 19:00 Respirations: 16 (Shanna Bryanna, RN) Pain Scale: 0 (Shanna Bryanna, RN) Pain Presence: None/Denies (Shanna Bryanna, RN) Pain Type: N/A (Shanna Bryanna, RN) LaborFlag: Antepartum (QS system process) Datetime: 06/01/2016 18:50 NBP Sys/Alee/Mean (mmHg): 125 (QS system process) : 69 (QS system process) : 91 (QS system process) Pulse: 104 (QS system process) LaborFlag: Antepartum (QS system process) Datetime: 06/01/2016 18:45 Respirations: 16 (Shanna Bryanna, RN) Pain Scale: 0 (Shanna Bryanna, RN) Pain Presence: None/Denies (Shanna Bryanna, RN) Pain Type: N/A (Shanna Bryanna, RN) LaborFlag: Antepartum (QS system process) Datetime: 06/01/2016 18:35 NBP Sys/Alee/Mean (mmHg): 122 (QS system process) : 64 (QS system process) : 87 (QS system process) Pulse: 98 (QS system process) LaborFlag: Antepartum (QS system process) Datetime: 06/01/2016 18:30 Respirations: 16 (Shanna Gould, RN) Temperature (F): 98.0 (Shanna Gould, RN) Temperature (C): 36.7 (QS system process) Pain Scale: 0 (Shanna Gould, RN) Pain Presence: None/Denies (Shanna Gould, RN) Pain Type: N/A (Shanna Gould, RN) LaborFlag: Antepartum (QS system process) Datetime: 06/01/2016 18:20 NBP Sys/Alee/Mean (mmHg): 135 (QS system process) : 71 (QS system process) : 97 (QS system process) Pulse: 96 (QS system process) LaborFlag: Antepartum (QS system process) Datetime: 06/01/2016 18:15 Respirations: 16 (Shanna Bryanna, RN) Pain Scale: 0 (Shanna Bryanna, RN) Pain Presence: None/Denies (Shanna Bryanna, RN) Pain Type: N/A (Shanna Bryanna, RN) LaborFlag: Antepartum (QS system process) Datetime: 06/01/2016 18:05 NBP Sys/Alee/Mean (mmHg): 131 (QS system process) : 68 (QS system process) : 91 (QS system process) Pulse: 112 (QS system process) LaborFlag: Antepartum (QS system process) Datetime: 06/01/2016 18:00 Respirations: 17 (Shanna Gould RN) Pain Scale: 0 (Shanna Gould RN) Pain Presence: None/Denies (Shanna Gould RN) Pain Type: N/A (Shanna Gould RN) LaborFlag: Antepartum (QS system process)
[2016-06-01] MEDS ORDERED: IBUPROFEN 800 MG TABLET ONE (20:10)
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
[2016-06-01] MEDS: IBUPROFEN 800 MG TABLET PO SCH (21:52)
[2016-06-02] MEDS ORDERED: INFLUENZA ADLT QUAD (36MOS+) 2016-17 VAC 0.5 ML SYR IM PRN (00:04)
[2016-06-02] MEDS: IBUPROFEN 800 MG TABLET PO SCH ×3 (05:40→22:00)
--- NOTE | 2016-06-02 07:01 | L&D Flow Sheet ---
LD Flowsheet Datetime Report Generated by CPN: 06/02/2016 07:00 Datetime: 06/01/2016 20:15 Stage of : Recovery (Anabella Laura, RN) Pain Scale: 0 (Anabella Laura, RN) Pain Presence: None/Denies (Anabella Laura, RN) Pain Type: N/A (Anabella Laura, RN) Datetime: 06/01/2016 20:05 NBP Sys/Alee/Mean (mmHg): 135 (QS system process) : 75 (QS system process) : 98 (QS system process) Pulse: 103 (QS system process) Datetime: 06/01/2016 19:50 NBP Sys/Alee/Mean (mmHg): 133 (QS system process) : 73 (QS system process) : 98 (QS system process) Pulse: 107 (QS system process) Datetime: 06/01/2016 19:35 NBP Sys/Alee/Mean (mmHg): 123 (QS system process) : 78 (QS system process) : 96 (QS system process) Pulse: 108 (QS system process) Datetime: 06/01/2016 19:30 Stage of : Recovery (Anabella Laura, RN) Temperature (F): 99.0 (Anabella Laura, RN) Temperature (C): 37.2 (QS system process) Temperature Route: Oral (Anabella Laura, RN) Pain Scale: 0 (Anabella Laura, RN) Pain Presence: None/Denies (Anabella Laura, RN) Pain Type: N/A (Anabella Laura, RN) Datetime: 06/01/2016 19:20 NBP Sys/Alee/Mean (mmHg): 121 (QS system process) : 69 (QS system process) : 84 (QS system process) Pulse: 123 (QS system process) LaborFlag: Antepartum (QS system process) Datetime: 06/01/2016 19:05 NBP Sys/Alee/Mean (mmHg): 115 (QS system process) : 65 (QS system process) : 84 (QS system process) Pulse: 102 (QS system process) LaborFlag: Antepartum (QS system process) Datetime: 06/01/2016 19:00 Respirations: 16 (Shanna Gould RN) Pain Scale: 0 (Shanna Gould RN) Pain Presence: None/Denies (Shanna Gould RN) Pain Type: N/A (Shanna Gould RN) LaborFlag: Antepartum (QS system process)
[2016-06-02 07:10] LABS: HEMATOCRIT 32.5 % (36.0-47.0); HEMOGLOBIN 11.3 g/dL (12.0-15.5); HGB HCT DIFFERENCE 1.4; MEAN CORPUSCULAR HEMOGLOBIN 30.7 pg (27.0-33.4); MEAN CORPUSCULAR HGB CONC 34.8 g/dL (32.0-36.0); MEAN CORPUSCULAR VOLUME 88 fl (80-97); RED BLOOD COUNT 3.68 10^6/uL (3.72-5.28); RED CELL DISTRIBUTION WIDTH 14.6 % (11.5-14.0); WHITE BLOOD COUNT 12.6 10^3/uL (4.0-10.5)
--- NOTE | 2016-06-02 10:00 | PDOC PROGRESS REPORT ---
Subjective-OB Subjective: Post Delivery Day: 1 26 year old. Denies any needs at this time, voiding without difficulty, pain well controlled, lochia is stable. Physical Exam (OB) Vital Signs: Temp Pulse Resp BP Pulse Ox 97.8 F 97 17 110/65 98 06/02/16 08:23 06/02/16 08:23 06/02/16 08:23 06/02/16 08:23 06/02/16 08:23 Intake & Output 06/01/16 06/02/16 06/03/16 06:59 06:59 06:59 Weight 132 kg - Lochia Lochia Amount: Small 10-25 ml Lochia Color: Rubra/Red - Abdomen Description: Soft, Round Hernia Present: No Fundal Description: Firm, Midline Fundal Height: u/u - u/2 Objective-Diagnostic Laboratory: 06/02/16 06:50 06/02/16 06:50 WBC 12.6 H RBC 3.68 L Hgb 11.3 L Hct 32.5 L MCV 88 MCH 30.7 MCHC 34.8 RDW 14.6 H Plt Count 234 Assessment and Plan(PN) - Assessment and Plan (1) Vaginal delivery Is this a current diagnosis for this admission?: YesPlan: routine pp care anticipate d/c home tomorrow - Time Spent with Patient Time with patient: Less than 15 minutes Critical Time spent with patient: Less than 15 minutes Medications reviewed and adjusted accordingly: Yes - Disposition Anticipated Discharge: Home Within: within 24 hours
[2016-06-02] MEDS: FLUOXETINE HCL 20 MG CAPSULE PO SCH (10:50)
[2016-06-02] MEDS: PRENATAL VITAMIN W-O CA NO5/FE FUMARATE/FA CAPSULE PO SCH (10:50)
[2016-06-02] MEDS: SENNOSIDES/DOCUSATE 8.6-50 MG 1 EACH TABLET PO SCH (10:50)
[2016-06-02] MEDS: FERROUS SULFATE 325 MG TABLET PO SCH ×2 (10:50→17:01)
[2016-06-02] MEDS: DOCUSATE SODIUM 100 MG CAPSULE PO SCH ×2 (10:51→17:01)
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
--- NOTE | 2016-06-02 18:01 | L&D Current Admission ---
Current Admit Datetime Report Generated by CPN: 06/02/2016 18:00 ADMISSION INFORMATION Current Admit Date/Time: 05/31/2016 12:30 (05/31/2016 17:07:ALEJADNRO Solorio) Reason for Admission: Rupture of Membranes (05/31/2016 17:07:Viet Bauer RN) Chief Complaint: Suspected Rupture of Membranes (05/31/2016 19:21:Karen Walls RN) Medications During : Docusate Sodium (Colace); Folic Acid; Ferrous Sulfate (Iron); Promethazine (Phenergan); Vitamin; Acetaminophen (Tylenol); Ondansetron (Zofran) (05/31/2016 17:07:Viet Bauer RN) Meds During -Oth: Prozac 40mg (05/31/2016 17:07:Viet Bauer RN) EGA per Dates: 38.1 (05/31/2016 17:07:QS system process) Method of Arrival: Ambulatory (05/31/2016 17:07:Viet Bauer RN) Admitted From: Home (05/31/2016 17:07:Viet Bauer RN) Records Available: Yes (05/31/2016 17:07:ALEJANDRO Solorio) General Admission Information: Reviewed (05/31/2016 17:07:ALEJANDRO Solorio) BELONGINGS/ADVANCED DIRECTIVES Valuables/Personal Effects: None (05/31/2016 17:07:ALEJANDRO Solorio) Disposition of Belongings: Sent Home (05/31/2016 17:07:ALEJANDRO Solorio) Advance Direct for Healthcare: No, and Wants No Information (05/31/2016 17:07:ALEJANDRO Solorio) Durable Power of [place] Setter: No (05/31/2016 17:07:ALEJANDRO Solorio) Living Will: No (05/31/2016 17:07:ALEJANDRO Solorio) Organ Donor: Undecided (05/31/2016 17:07:ALEJANDRO Solorio) Pt Rights Information Given: Yes (05/31/2016 17:07:ALEJANDRO Solorio) Pt Understands Pt Rights: Yes (05/31/2016 17:07:ALEJANDRO Solorio) LEARNING ASSESSMENT Knowledge Level: Understands L_D Process; Understands Care Activities; Understands Diagnosis (05/31/2016 17:07:ALEJANDRO Solorio) Barriers to Learning: Visual Deficit (05/31/2016 17:07:ALEJANDRO Solorio) Learning Readiness: Motivated (05/31/2016 17:07:ALEJANDRO Solorio) Learns Best By: 1 to 1 Instruction; Reading; Videos; Group Discussion; Demonstration (05/31/2016 17:07:ALEJANDRO Solorio) Learning Needs: Labor and Delivery Process; Pain Management; Symptoms to Report; Treatment Plan; Medication; Diagnosis (05/31/2016 17:07:ALEJANDRO Solorio) DOMESTIC VIOLANCE SCREENING Dom Viol Threatened/Hurt: No (05/31/2016 17:07:ALEJANDRO Solorio) Hx of Abuse/Neglect past 2yrs: No (05/31/2016 17:07:ALEJANDRO Solorio) Feel Unsafe Going Home: No (05/31/2016 17:07:ALEJANDRO Solorio) Addt'l Observ Indicating Abuse: No (05/31/2016 17:07:ALEJANDRO Solorio) Reason Unable to Complete Screen: N/A, Screen Completed (05/31/2016 17:07:ALEJANDRO Solorio) Considered Personal Harm/Suicide: No (05/31/2016 17:07:ALEJANDRO Solorio) NUTRITIONAL/FUNCTIONAL SCREENING Problem with Appetite >5 Days: No (05/31/2016 17:07:ALEJANDRO Solorio) Chew/Swallow Difficulties: No (05/31/2016 17:07:ALEJANDRO Solorio) Inappropriate Wt Gain/Loss: No (05/31/2016 17:07:ALEJANDRO Solorio) Presence Skin Breakdown/Ulcer: No (05/31/2016 17:07:ALEJANDRO Solorio) Special Diet: No (05/31/2016 17:07:ALEJANDRO Solorio) Pt Requests Agricultural Education Instructor Visit: No (05/31/2016 17:07:ALEJANDRO Solorio) Hx of Any of the Following?: N/A (05/31/2016 17:07:ALEJANDRO Solorio) New Diagnosis of: N/A (05/31/2016 17:07:ALEJANDRO Solorio) Requires Assist w/Ambulation: No (05/31/2016 17:07:ALEJANDRO Solorio) Uses Assist Device to Ambulate: No (05/31/2016 17:07:ALEJANDRO Solorio) Pt Requires Help w/ADL's: No (05/31/2016 17:07:ALEJANDRO Solorio)
[2016-06-03] MEDS: IBUPROFEN 800 MG TABLET PO SCH (05:56)
--- NOTE | 2016-06-03 06:01 | L&D Current Admission ---
Current Admit Datetime Report Generated by CPN: 06/03/2016 06:00 ADMISSION INFORMATION Current Admit Date/Time: 05/31/2016 12:30 (05/31/2016 17:07:ALEJANDRO Solorio) Reason for Admission: Rupture of Membranes (05/31/2016 17:07:Viet Bauer RN) Chief Complaint: Suspected Rupture of Membranes (05/31/2016 19:21:Karen Walls RN) Medications During : Docusate Sodium (Colace); Folic Acid; Ferrous Sulfate (Iron); Promethazine (Phenergan); Vitamin; Acetaminophen (Tylenol); Ondansetron (Zofran) (05/31/2016 17:07:Viet Bauer RN) Meds During -Oth: Prozac 40mg (05/31/2016 17:07:Viet Bauer RN) EGA per Dates: 38.1 (05/31/2016 17:07:QS system process) Method of Arrival: Ambulatory (05/31/2016 17:07:Viet Bauer RN) Admitted From: Home (05/31/2016 17:07:Viet Bauer RN) Records Available: Yes (05/31/2016 17:07:ALEJANDRO Solorio) General Admission Information: Reviewed (05/31/2016 17:07:ALEJANDRO Solorio) BELONGINGS/ADVANCED DIRECTIVES Valuables/Personal Effects: None (05/31/2016 17:07:ALEJANDRO Solorio) Disposition of Belongings: Sent Home (05/31/2016 17:07:ALEJANDRO Solorio) Advance Direct for Healthcare: No, and Wants No Information (05/31/2016 17:07:ALEJANDRO Solorio) Durable Power of Beater Out: No (05/31/2016 17:07:ALEJANDRO Solorio) Living Will: No (05/31/2016 17:07:ALEJANDRO Solorio) Organ Donor: Undecided (05/31/2016 17:07:ALEJANDRO Solorio) Pt Rights Information Given: Yes (05/31/2016 17:07:ALEJANDRO Solorio) Pt Understands Pt Rights: Yes (05/31/2016 17:07:ALEJANDRO Solorio) LEARNING ASSESSMENT Knowledge Level: Understands L_D Process; Understands Care Activities; Understands Diagnosis (05/31/2016 17:07:ALEJANDRO Solorio) Barriers to Learning: Visual Deficit (05/31/2016 17:07:ALEJANDRO Solorio) Learning Readiness: Motivated (05/31/2016 17:07:ALEJANDRO Solorio) Learns Best By: 1 to 1 Instruction; Reading; Videos; Group Discussion; Demonstration (05/31/2016 17:07:ALEJANDRO Solorio) Learning Needs: Labor and Delivery Process; Pain Management; Symptoms to Report; Treatment Plan; Medication; Diagnosis (05/31/2016 17:07:ALEJANDRO Solorio) DOMESTIC VIOLANCE SCREENING Dom Viol Threatened/Hurt: No (05/31/2016 17:07:ALEJANDRO Solorio) Hx of Abuse/Neglect past 2yrs: No (05/31/2016 17:07:ALEJANDRO Solorio) Feel Unsafe Going Home: No (05/31/2016 17:07:ALEJANDRO Solorio) Addt'l Observ Indicating Abuse: No (05/31/2016 17:07:ALEJANDRO Solorio) Reason Unable to Complete Screen: N/A, Screen Completed (05/31/2016 17:07:ALEJANDRO Solorio) Considered Personal Harm/Suicide: No (05/31/2016 17:07:ALEJANDRO Solorio) NUTRITIONAL/FUNCTIONAL SCREENING Problem with Appetite >5 Days: No (05/31/2016 17:07:ALEJANDRO Solorio) Chew/Swallow Difficulties: No (05/31/2016 17:07:ALEJANDRO Solorio) Inappropriate Wt Gain/Loss: No (05/31/2016 17:07:ALEJANDRO Solorio) Presence Skin Breakdown/Ulcer: No (05/31/2016 17:07:ALEJANDRO Solorio) Special Diet: No (05/31/2016 17:07:ALEJANDRO Solorio) Pt Requests Chlorine Cells Operator Visit: No (05/31/2016 17:07:ALEJANDRO Solorio) Hx of Any of the Following?: N/A (05/31/2016 17:07:ALEJANDRO Solorio) New Diagnosis of: N/A (05/31/2016 17:07:ALEJANDRO Solorio) Requires Assist w/Ambulation: No (05/31/2016 17:07:ALEJANDRO Solorio) Uses Assist Device to Ambulate: No (05/31/2016 17:07:ALEJANDRO Solorio) Pt Requires Help w/ADL's: No (05/31/2016 17:07:ALEJANDRO Solorio)
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
--- NOTE | 2016-06-03 06:16 | L&D Care Plan ---
LD CARE PLANS Datetime Report Generated by CPN: 06/03/2016 06:15 Datetime: 05/31/2016 20:50 Pain State: Actual (Karen Walls RN) Related To: Labor and Delivery Process (Karen Walls RN) Goal(s): Patients Pain will be Assessed and Managed; Patient will Verbalize Adequate Relief of Pain or the Ability to [place] with Current Pain (Karen Walls RN) Interventions: Assess Pain Severity on Scale of 0 (None) to 5 (Severe); Assess Type, Location and Intensity of Pain Each Time Client Reports Discomfort and Notify Provider if Unusal Pain Develops; Encourage Proper Breathing and Relaxation Techniques; Offer Alternatives Such as Repositioning, Calm Environment, Massages, Diversional Activities, Ice Pack, Splinting, and Ambulation; Administer Analgesics as Ordered; Assist with Epidural Placement as Appropriate; Evaluate Therapeutic Effectiveness of Medication and Treatments (Karen Walls RN) Outcome: Patient will Report Absence or Relief of Pain Consistent with Established Pain Goal (Karen Walls RN) Status: Ongoing (Karen Walls RN) Outcome: Patient will have a Decrease in Signs and Symptoms of Discomfort (Karen Walls RN) Status: Ongoing (Karen Walls RN) Outcome: Pain will be Controlled During Procedures (Karen Walls RN) Status: Ongoing (Karen Walls RN) Anxiety State: Risk For (Karen Walls RN) Related To: Labor and Delivery Process (Karen Walls RN) Goal(s): Patient will have Decreased Anxiety and be able to Function at Acceptable Levels (Karen Walls RN) Interventions: Assess Verbal and Nonverbal Behavioral Indicators of Anxiety; Assist Patient to Identify and Verbalize Symptoms of Anxiety; Identify and Demonstrate Techniques to Control Anxiety; Assist Patient with Coping Mechanisms to Manage Anxiety; Provide Theraputic Touch for the Patient; Explain to Patient, Using a Calm Reassuring Approach and Nonmedical Terms, All Activities, Procedures, and Concerns; Instruct Patient and Family about Post Discharge Care, Limitations, Symptoms to Report and Resources Available (Karen Walls RN) Outcome: Patient will Identify, Verbalize and Demonstrate Techniques to Control Anxiety (Karen Walls RN) Status: Ongoing (Karen Walls RN) Outcome: Patient's Posture, Facial Expressions, Gestures and Activity Level will Reflect Decreased Anxiety (Karen Walls RN) Status: Ongoing (Karen Walls RN) Outcome: Patient will Verbalize a Sense of Control and/or Acceptance of the Situation (Karen Walls RN) Outcome: Patient will Identify and Utilize Support Person (Karen Walls RN) Status: Ongoing (Karen Walls RN) Knowledge Deficit State: Risk For (Karen Walls RN) Related To: Labor and Delivery Process (Karen Walls RN) Goal(s): Patient will Accurately Verbalize Understanding of Plan of Care and Treatment; Patient and Family will Accurately Verbalize Understanding of the Disease Process (Karen Walls RN) Interventions: Assess Motivation and Willingness of Patient/Family to Learn; Assess Preferred Learning Mode: One to One Instruction, Reading, Videos, Group Discussion or Demonstration; Assess Barriers to Learning: Pain, Emotional State, Language Barrier, Cognitive Impairment, Visual or Hearing Deficits; Assess Patient and Family Knowledge of Disease Process, Medications and Treatment; Discuss Therapy and/or Treatment Options, Describe Rationale Behind Management, Therapy and Treatment Recommendations; Instruct Patient and Family on Signs and Symptoms to Report; Instruct Patient and Family on Medication Effects and Side Effects; Provide Appropriate and Timely Education Using Multiple Techniques; Give Clear and Thorough Explanations and Demonstrations (Karen Walls RN) Outcome: Patient and Family will Verbalize Understanding of Condition, Treatment and Signs and Symptoms to Report (Karen Walls RN) Status: Ongoing (Karen Walls RN) Outcome: Patient will Identify Perceived Learning Needs and Express Motivation to Learn (Karen Walls RN) Status: Ongoing (Karen Walls RN) Outcome: Patient will Verbalize Understanding of Desired Content, and/or Performs Desired Skill Prior to Discharge (Karen Walls RN) Status: Ongoing (Karen Walls RN) Infection State: Risk For (Karen Walls RN) Related To: Prolonged Labor or Induction (Karen Walls RN) Goal(s): The Patient will be Free of Infection, Vital Signs Stable and Lab Work within Normal Parameters (Karen Walls RN) Interventions: Instruct and Reinforce Proper Handwashing, Hygiene, and Care Techniques to Patient and Family; Monitor Vital Signs; Monitor Patient for the Following Signs of Infection: Fever, Abdominal Tenderness, Unusual Discharge; Monitor Aminiotic Fluid, Urine and Lochia for Color and Odor; Observe Wounds, Incisions and Invasive Line Sites for Redness, Drainage and Edema; Assess IV Sites per Hospital Policy; Monitor Lab and Test Results and Notify Provider of Abnormal Findings; Assess Nutritional Status and Promote Good Nutrition (Karen Walls RN) Outcome: Patient will Remain Free of Infection (Karen Walls RN) Status: Ongoing (Karen Walls RN) Outcome: Infection will be Recognized Early to Allow for Prompt Treatment (Karen Walls RN) Status: Ongoing (Karen Walls RN) Outcome: Patient will have Vital Signs Within Expected Range (Karen Walls RN) Status: Ongoing (Karen Walls RN) Fluid Volume State: Risk For (Karen Walls RN) Related To: Prolonged Labor or Induction (Karen Walls RN) Goal(s): Patient will Achieve and Maintain a Balanced Fluid Volume Status; Hemodynamically Stable (Karen Walls RN) Interventions: Monitor Vital Signs; Auscultate Breath Sounds; Monitor Patient for Skin Turgor, Mucous Membranes, Dry Skin, Weakness, Headaches and Confusion; Provide Oral Fluids as Ordered; Initiate and Maintain Intravenous Fluids as Ordered; Monitor Intake and Output as Indicated Per Patient Status; Accurately Measure Blood Loss; Monitor Lab and Test Results as Obtained and Notify Provider of Abnormal Findings; Monitor Patient's Weight (Karen Walls RN) Outcome: Patient will have Clear Lung Sounds (Karen Walls RN) Status: Ongoing (Karen Walls RN) Outcome: Patient will have Vital Signs within Expected Range (Karen Walls RN) Status: Ongoing (Karen Walls RN) Outcome: Urine Output will be within Expected Range (Karen Walls RN) Status: Ongoing (Karen Walls RN) Outcome: Patient will have Minimal Generalized or Upper Extremity Edema (Karen Walls RN) Status: Ongoing (Karen Walls RN) Injury State: Risk For (Karen Walls RN) Related To: Labor and Delivery Process; Gestational Hypertension or Eclampsia; Anesthesia; Altered Coagulation; Risk to Status; Uteroplacental Perfusion; Decreased Mobility; Hemorrhage, Placenta Previa and or Placental Abruption; Uterine Rupture (Karen Walls RN) Goal(s): Patient will Remain Free from Injury (Karen Walls RN) Interventions: Monitoring as per Hospital Protocol; Assess Neurological Status; Perform Risk Assessment of Patients with Induction and ; Perform Fall Risk Assessment and Prevention per Hospital Protocol; Perform DVT Risk Assessment and Prophylaxis per Hospital Protocol; Ensure that Oxygen, Suction, and Resuscitation Medications and Equipment are Readily Available; Confirm Patient ID Prior to Procedure(s) and Medication Administration per Hospital Policy (Karen Walls RN) Outcome: Successful Fall Risk Prevention (Karen Walls RN) Status: Ongoing (Karen Walls RN) Outcome: Patient will Deliver Infant without Adverse [place] (Karen Walls RN) Status: Ongoing (Karen Walls RN) Outcome: Patient's Neurological Status will Remain Stable (Karen Walls RN) Status: Ongoing (Karen Walls RN) Impaired Skin Integrity State: Risk For (Karen Walls RN) Related To: Vaginal Delivery; Prolonged Bedrest (Karen Walls RN) Goal(s): Patient will Maintain Optimal Skin Integrity, Free of Breakdown, Injury or Infection (Karen Walls RN) Interventions: Complete Screening for Pressure Ulcer Risk and Initiate Protocol per Hospital Policy; Monitor Site of Skin Impairment for Color Changes, Redness, Swelling, Warmth, Pain or Other Signs of Infection; Encourage and Assist with Position Changes; Monitor Patient's Mobility Status; Provide Adequate Nutrition and Fluids; Teach Patient Appropriate Hygienic Care; Teach Patient/Family Skin Care Management (Karen Walls RN) Outcome: Patient will not have Evidence of Injury Such as Skin Breakdown, Scrapes, Cuts, or Bruising (Karen Walls RN) Status: Ongoing (Karen Walls RN) Outcome: Patient will Report Any Altered Sensation or Pain at Site of Skin Impairment (Karen Walls RN) Status: Ongoing (Karen Walls RN) Outcome: Patients Incisions and Wounds will be without Signs or Symptoms of Infection (Karen Walls RN) Status: Ongoing (Karen Walls RN) Outcome: Patient will Demonstrate Understanding of Plan to Heal Skin and Prevent Reinjury and Verbalize Risk Factors (Karen Walls RN) Status: Ongoing (Karen Walls RN)
--- NOTE | 2016-06-03 08:53 | PDOC DISCHARGE SUMMARY ---
Final Diagnosis Discharge Date: 06/03/16 - Final Diagnosis (1) Vaginal delivery Is this a current diagnosis for this admission?: Yes (2) History of depression Is this a current diagnosis for this admission?: Yes Discharge Data - Discharge Medication Home Medications: Fluoxetine HCl [Prozac 20 mg Capsule] 40 mg PO DAILY 05/31/16 Pnv with Ca,No.72/Iron/FA [Pnv Plus Multivit Tab] 1 each PO DAILY 05/31 Docusate Sodium [Colace 100 mg Capsule] 100 mg PO BID #60 capsule 06/03/16 Ferrous Sulfate [Feosol 325 mg Tablet] 325 mg PO BID #60 tablet 06/03/16 Ibuprofen [Motrin 800 mg Tablet] 800 mg PO Q8 #60 tablet 06/03/16 Gestational Age: 38.2 Reason(s) for Admission: PROM Admission Note: gbs unk, received pcn, augmentation Procedures: NST Intrapartum Procedure(s): Spontaneous Vaginal Delivery - Data Baby 1 Male at 1 minute: 8 at 5 minutes: 8 Weight: 3640 kg Home with Mother: Yes Complications: No - Diagnosis Test Laboratory: Temp Pulse Resp BP Pulse Ox 97.8 F 93 14 140/75 H 99 06/02/16 20:06 06/02/16 20:06 06/02/16 20:06 06/02/16 20:06 06/02/16 20:06 05/31/16 05/31/16 06/02/16 11:46 13:12 06:50 RBC 4.28 3.68 L Hgb 13.1 11.3 L Hct 37.5 32.5 L Urine Opiates Screen NEGATIVE - Discharge information/Instructions Discharge Activity: Activity As Tolerated, Pelvic Rest, No tub bath Discharge Diet: Regular Disposition: HOME, SELF-CARE Follow up with: [facility] in: 4, Weeks
[2016-06-03] MEDS: PRENATAL VITAMIN W-O CA NO5/FE FUMARATE/FA CAPSULE PO SCH (09:39)
[2016-06-03] MEDS: DOCUSATE SODIUM 100 MG CAPSULE PO SCH (09:39)
[2016-06-03] MEDS: FLUOXETINE HCL 20 MG CAPSULE PO SCH (09:39)
[2016-06-03] MEDS: FERROUS SULFATE 325 MG TABLET PO SCH (09:40)
[2016-06-03] MEDS: SENNOSIDES/DOCUSATE 8.6-50 MG 1 EACH TABLET PO SCH (09:40)
[2016-06-03 10:18] VITALS: BP 131/70
--- NOTE | 2016-06-11 18:42 | Delivery Summary ---
Del Sum A-C Datetime Report Generated by N: 06/11/2016 18:42 ADMISSION DATA Chief Complaint: Suspected Ruptured Membranes Indication for Induction: Not Applicable (Annotations: Data stored by [facility] on behalf of user) Admission Impression: Ruptured Membranes Admit Provider Comments: clear fluid SROM around 0930 DELIVERY PERSONNEL Delivery Doctor:: Cristina Powell CNM Nurse Restaurant Inspector Certified:: Cristina Powell CNM Anesthesiologist:: Yousuf Andrade MD Labor and Delivery Nurse:: Shanna Gould RNsupervisor scenic arts Nurse:: Nanda Alva RNC Sales Planner/TEACHER [place]: Alejandra Harper, Sales Planner/TEACHER [place]: Harini Muñiz CNA II Additional Personnel: : Sonya Urbano CST MATERNAL INFORMATION Delivery Anesthesia: Epidural Medications After Delivery: Pitocin Drip 20 Units/1000ml NSS Estimated Blood Loss (ml): 200 Maternal Complications: Premature Rupture of Membranes Provider Comments: of viable male over intact perineum, head, shoulders, and body delivered without difficulty, infant with spontaneous cry and respirations, to maternal abodmen, cord clamped X2, cut free by pts , after 2 min delay. Spontaneous delivery of intact placenta, via rima mechanism, 3 VC, appears intact, to pathology d/t prolonged ROM. Vagina and perineum inspected, no lacerations. Hemostasis acheived with external fundal massage and IV pitocin. Mother and baby in stable condition, routine pp care. LABOR SUMMARY EDC: 06/13/2016 00:00 No. Babies in Womb: 1 Attempted: No Labor Anesthesia: Epidural LABOR INFORMATION Reason for Induction: Not Applicable Onset of Labor: 06/01/2016 08:06 Complete Dilatation: 06/01/2016 17:20 Cervical Ripening Agents: Cytotec @ Oxytocin: Augmentation Group B Beta Strep: Unknown Antibiotics # of Doses: 10 Antibiotics Time of Last Dose: 1650 Name of Antibiotic Given: PCN Steroids Given: None Reason Steroids Not Administered: Not Applicable MEMBRANES Membranes Rupture Method: Spontaneous Rupture of Membranes: 05/31/2016 09:30 Length of Rupture (hr): 32.07 Amniotic Fluid Color: Clear Amniotic Fluid Amount: Small Amniotic Fluid Odor: Normal STAGES OF LABOR Stage 1 hr: 9 Stage 1 min: 14 Stage 2 hr: 0 Stage 2 min: 14 Stage 3 hr: 0 Stage 3 min: 10 Total Time in Labor hr: 9 Total Time in Labor min: 38 VAGINAL DELIVERY Episiotomy: None Laceration Extension: N/A Laceration Type: None Laceration Repair Note: n/a Sponge Count Correct: N/A Sharps Count Correct: N/A CSECTION DELIVERY Primary Indication: N/A Secondary Indication: N/A CSection Incidence: N/A Labor: N/A Elective: N/A CSection Incision: N/A BABY A INFORMATION Infant Delivery Date/Time: 06/01/2016 17:34 Method of Delivery: Vaginal Born in Route : No : N/A Forceps: N/A Vacuum Extraction: N/A Shoulder Dystocia : No PRESENTATION/POSITION BABY A Presentation: Cephalic Cephalic Presentation: Vertex Breech Presentation: N/A PLACENTA INFORMATION BABY A Placenta Delivery Time : 06/01/2016 17:44 Placenta Method of Delivery: Spontaneous Placenta Status: Delivered SCORES BABY A Heart Rate 1 min: >100 bpm Resp Effort 1 min: Good Cry Reflex Irritability 1 min: Cough or Sneeze or Pulls Away Muscle Tone 1 min: Some Flexion of Extremities Color 1 min: Body [place], Extremities Blue Resuscitation Effort 1 min: Tactile Stimulation SCORE 1 MIN: 8 Heart Rate 5 min: >100 bpm Resp Effort 5 min: Good Cry Reflex Irritability 5 min: Cough or Sneeze or Pulls Away Muscle Tone 5 min: Some Flexion of Extremities Color 5 min: Body [place], Extremities Blue Resuscitation Effort 5 min: Tactile Stimulation SCORE 5 MIN: 8 INFANT INFORMATION BABY A Gestational Age at Delivery: 38.2 Gestational Status: Early Term- 37- 38.6 Weeks Infant Outcome : Liveborn Infant Condition : Stable Sex: Male IDENTIFICATION BABY A Infant Verification Date/Time: 06/01/2016 17:44 ID Band Number: [id number] RN Verifying : Honey Sethi RN Additional Verifying Personnel: Penny Roche CNA WEIGHT/LENGTH BABY A Birthweight (gm): 3640 Weight (lb): 8 Infant Weight (oz): 0 Infant Length (in): 20.00 Length (cm): 50.80 CORD INFORMATION BABY A No. Cord Vessels: 3 Nuchal Cord : N/A Cord Blood Taken: Yes-For Eval (Mom's Blood Type - or O+) Suction: None ASSESSMENT BABY A Physical Findings at Delivery: Molding of the Head Physical Findings- Other: hypotonis Respirations: Appears Normal Skin to Skin: Yes Skin to Skin Time (min): 60 Patternmaker Metal/ALS Called : No Care By: Penny Alva RN Transferred To: Remains with Mother BABY B INFORMATION : N/A SIGNATURES Assignment: Fernanda Morse MD Signature: with User ID: [email or web address] : with User ID: [email or web address] : I was personally available for consultation and serving as supervising physician for the MLP.
== END 2016-06-03 12:30 | disposition home or self-care (01) | DRG 775 ==
LOC: LC 11:09 → LR 12:29 → 2S 06-01 20:40
PROVIDERS: ADMIT Obstetrics & Gynecology; ATTEND Obstetrics & Gynecology
PROC: 10E0XZZ Delivery of Products of Conception, External Approach (ICD-10-PCS; principal; 2016-05-31)
PROC: 4A1HXCZ Monitoring of Products of Conception, Cardiac Rate, External Approach (ICD-10-PCS; 2016-05-31)
PROC: 3E0234Z Introduction of Serum, Toxoid and Vaccine into Muscle, Percutaneous Approach (ICD-10-PCS; 2016-06-03)
PROC: 3E0234Z Introduction of Serum, Toxoid and Vaccine into Muscle, Percutaneous Approach (ICD-10-PCS; 2016-06-03)
DX: O42.02 Full-term premature rupture of membranes, onset of labor within 24 hours of rupture (principal); O99.344 Other mental disorders complicating childbirth; F32.9 Major depressive disorder, single episode, unspecified; F41.9 Anxiety disorder, unspecified; Z3A.38 38 weeks gestation of pregnancy; Z86.14 Personal history of Methicillin resistant Staphylococcus aureus infection; Z37.0 Single live birth; Z62.819 Personal history of unspecified abuse in childhood; Z23 Encounter for immunization
CPT/HCPCS: 36415; 80307; 81005; 84112; 85025; 85027; 86592; 86850; 86900; 86901; 87491; 87591; 88307; 90686; 90715; 94760; J2405; J2540; J2550; J2590; J3490

== ENCOUNTER 2016-06-09 12:55 | Emergency (ER) | payer MEDICAID ==
--- NOTE | 2016-06-09 13:52 | ER Document Report ---
HPI - HPI Patient complains to provider of: skin bump Context: patient is a 26 year old female with a h/o MRSA cellulitis who presents with concern for skin infection. patient is breast feeding 1 week old son and she was told by bridge ironworker helper OBGYN to come be evaluated. She denies any irritation, tenderness, erythema at the site. she noticied it within the past two days and has not grown in size. denies fever, chills pmh: bells palsy 3 weeks ago, past MRSA infection under left breast over a year ago Past Medical History - General Information source: Patient - Social History Smoking Status: Never Smoker Family History: Reviewed & Not Pertinent Renal/ Medical History: Denies: Hx Peritoneal Dialysis - Immunizations Hx Diphtheria, Pertussis, Tetanus Vaccination: Yes Vertical Provider Document - CONSTITUTIONAL Agree With Documented VS: Yes Exam Limitations: No Limitations General Appearance: WD/WN, No Apparent Distress - INFECTION CONTROL TRAVEL OUTSIDE OF THE [place] IN LAST 30 DAYS: No - RESPIRATORY O2 Sat by Pulse Oximetry: 96 - NEURO Level of Consciousness: Awake, Alert, Appropriate Motor/Sensory: No Motor Deficit, No Sensory Deficit - DERM Integumentary: Warm, Dry. negative: Abscess Adult Front & Back Diagram: 1 - firm dermis, maybe [id number], nontender, nonerytematous, no evidence of induration. needle aspiration negative for fluid. likely a blocked milk duct Course - Re-evaluation Re-evalutation: 06/09/16 13:51 patient is a 26 year old female who is HDS, NAD and afebrile. no evidence of cellulitis, no abx indicated at this time. d/w with patient s/s to be aware of to return to the ed - Vital Signs Vital signs: Temp Pulse Resp BP Pulse Ox 98.3 F 105 H 16 141/88 H 96 06/09/16 13:07 06/09/16 13:07 06/09/16 13:07 06/09/16 13:07 06/09/16 13:07 Discharge - Discharge Clinical Impression: Skin abnormality Condition: Good Disposition: HOME, SELF-CARE Additional Instructions: please be sure to maintain normal hygiene routine no need for antibiotics at this time please return if the site becomes red, tender, increases in size in the meantime, you can use warm packs
[2016-06-09 14:32] VITALS: BP 127/83
== END 2016-06-09 14:32 | disposition home or self-care (01) ==
LOC: ER 12:55
DX: O90.9 Complication of the puerperium, unspecified (principal); N63 Unspecified lump in breast; Z86.14 Personal history of Methicillin resistant Staphylococcus aureus infection
CPT/HCPCS: 99282

== ENCOUNTER 2016-08-09 06:57 | Day surgery (SDC) | payer MEDICAID ==
[2016-08-07 11:39] LABS: HEMATOCRIT 37.2 % (36.0-47.0); HEMOGLOBIN 12.6 g/dL (12.0-15.5); HGB HCT DIFFERENCE 0.6; MEAN CORPUSCULAR HEMOGLOBIN 28.5 pg (27.0-33.4); MEAN CORPUSCULAR HGB CONC 33.9 g/dL (32.0-36.0); MEAN CORPUSCULAR VOLUME 84 fl (80-97); RED BLOOD COUNT 4.42 10^6/uL (3.72-5.28); RED CELL DISTRIBUTION WIDTH 13.7 % (11.5-14.0); WHITE BLOOD COUNT 9.2 10^3/uL (4.0-10.5)
[2016-08-07 12:54] LABS: APPEARANCE,URINE CLEAR; BILIRUBIN,URINE NEGATIVE (NEGATIVE); GLUCOSE, URINE NEGATIVE (NEGATIVE); KETONES,URINE NEGATIVE (NEGATIVE); LEUKOCYTE ESTERASE,URINE NEGATIVE (NEGATIVE); NITRITE,URINE NEGATIVE (NEGATIVE); PROTEIN,URINE NEGATIVE (NEGATIVE); URINE SPECIFIC GRAVITY 1.019; UROBILINOGEN,URINE NEGATIVE mg/dL (<2.0)
[~2016-08-09 06:57] MED LIST: CEFAZOLIN 2 GM/D5W RTU 2 GM/50 ML RTUPB IV PRN; LACTATED RINGERS 1000 ML IV PRN; LIDOCAINE 0.5% INJ-PF (5 MG/ML) 50 ML SDV SUBCUT PRN
[2016-08-09] MEDS ORDERED: BUPIVACAINE HCL 0.25 % INJ/PF (2.5 MG/1 ML) 30 ML VIAL ONE (08:16)
[2016-08-09] MEDS ORDERED: PROPOFOL INJ 200 MG/20 ML VIAL IV ONE (09:41)
[2016-08-09] MEDS ORDERED: HYDROMORPHONE HCL INJ/PF 2 MG/ML AMPULE ONE ×2 (09:41→12:51)
[2016-08-09] MEDS ORDERED: MIDAZOLAM 2 MG/2 ML INJ ONE (09:41)
[2016-08-09] MEDS ORDERED: OXYCODONE-ACETAMINOPHEN 5-325 MG TABLET PO PRN ×4 (10:31→12:34)
[2016-08-09] MEDS ORDERED: MEPERIDINE HCL/PF INJ 25 MG/1 ML DISP.SYRIN IV PRN (10:31)
[2016-08-09] MEDS ORDERED: FENTANYL CITRATE INJ/PF 100 MCG/2 ML AMPUL IV PRN ×3 (10:31)
[2016-08-09] MEDS ORDERED: DIPHENHYDRAMINE HCL 50 MG/ML VIAL IV PRN (10:31)
[2016-08-09] MEDS ORDERED: PROMETHAZINE HCL INJ 25 MG/1 ML VIAL IV PRN ×2 (10:31)
[2016-08-09] MEDS ORDERED: MORPHINE SULFATE 10 MG/ML INJ IV PRN (10:31)
[2016-08-09] MEDS ORDERED: ONDANSETRON HCL INJ/PF 4 MG/2 ML SDV ONE ×2 (11:21→11:48)
[2016-08-09] MEDS: FENTANYL CITRATE INJ/PF 100 MCG/2 ML AMPUL ONE ×2 (11:40→11:50)
[2016-08-09] MEDS ORDERED: DEXAMETHASONE SOD PHOSPHATE INJ 4 MG/1 ML VIAL ONE (11:48)
[2016-08-09] MEDS ORDERED: SUCCINYLCHOLINE CHLORIDE INJ 200 MG/10 ML VIAL ONE (11:48)
[2016-08-09] MEDS ORDERED: ONDANSETRON HCL INJ/PF 4 MG/2 ML SDV IV PRN (11:54)
[2016-08-09] MEDS ORDERED: PROMETHAZINE HCL 25 MG SUPP.RECT PR ONE (12:00)
[2016-08-09] MEDS ORDERED: RINGERS SOLUTION,LACTATED 1,000 ML IV PRN (12:33)
[2016-08-09] MEDS ORDERED: IBUPROFEN 800 MG TABLET PO PRN (12:34)
[2016-08-09 14:27] VITALS: BP 125/87
--- NOTE | 2016-09-10 13:09 | Operative Report ---
Operative Report DATE OF SURGERY: 08/09/16 PREOPERATIVE DIAGNOSIS: Undesired Fertility OPERATION: EUA, Laparoscopic BTL with Filschie Clips SURGEON: JACK TORO ANESTHESIA: GA TISSUE REMOVED OR ALTERED: none COMPLICATIONS: None ESTIMATED BLOOD LOSS: <5ml INTRAOPERATIVE FINDINGS: normal uterus, normal tubes, normal ovaries PROCEDURE: Preoperative diagnosis: Multiparity, undesired future fertility Postoperative diagnosis: Same as above Procedure: Examination under anesthesia, Laparoscopic BTL Night Filler: None Anesthesia: General Endotracheal tube Anesthesiologist: Mady Andrade MD, CRNA Complications: None Estimated blood loss: [<5ml] IV fluids: [850ml] Urine output: [250ml] Specimens: [none] Findings: [see above] Indications: [26yo with recent delivery uncomplicated excet for severe intrapartum and depression. She was counseled on several occasions regarding contraception options and strongly desires tubal ligation due to despression history. The risks, benefits, alternatives were reviewed and she desires to proceed with planned procedure. See H&P.] Procedure: The patient was taken to the operating room where general anesthesia was obtained without difficulty. The patient was then examined under anesthesia with findings as noted above with a small anteverted uterus and possible left adnexal mass. She was then placed in dorsal supine lithotomy position and prepped and draped in the normal sterile fashion. [place] speculum was then placed in the patient's vagina and the anterior lip of the cervix grasped with a single-tooth tenaculum. A [employer] uterine manipulator was then advanced into the uterus to provide a means of manipulation of the uterus. The speculum and tenaculum were then removed from the patient's cervix and vagina. Attention was then turned to the patient's abdomen where a 5 mm infraumbilical skin incision was then made. The Optiview trocar with 0 laparoscope was then advanced without difficulty under direct visualization with the Optiview trocar. This was performed while tenting the abdominal wall and these will fashion. Intraperitoneal placement was confirmed by the direct visualization. Pneumoperitoneum was then obtained with approximately 4 L carbon dioxide gas. Survey of the patient's abdomen and pelvis revealed findings as noted above. A second skin incision was then made approximately 2cm superior to the pubic symphysis in the midline. These incisions were made under direct visualization with the laparoscope. The second was then advanced under direct visualization of the laparoscope at the site. The right fallopian tube was then identified and followed out to the fimbriated end and the filschie clip was placed in the mid ampullary portion of the fallopian tube times 2. This procedure was repeated on the left fallopian tube with placement of 2 filschie clips in the mid ampullary portion of the fallopian tube. All operative sites were visualized and noted to be hemostatic. The additional trocar was then removed under direct visualization. The 5mm trocar was then removed after abdominal insufflation was removed. The skin at all trocar sites were closed with 3-0 Monocryl in a subcuticular fashion with overlying Dermabond. Ancef 2 grams were given prior to this procedure. After completion of skin closure of the trocar sites attention was then turned to the vagina where the [place] uterine manipulator was removed and the bivalve speculum was replaced. Silver nitrate and suture was applied to the tenaculum sites for hemostasis and the speculum was removed. Sponge lap needle and instrument counts were correct 3. The patient tolerated the procedure well and was taken to the recovery area awake and in stable condition.
== END 2016-08-09 14:15 | disposition home or self-care (01) ==
LOC: OROUT 06:57
PROVIDERS: ATTEND Student in an Organized Health Care Education/Training Program
PROC: 0UL74CZ Occlusion of Bilateral Fallopian Tubes with Extraluminal Device, Percutaneous Endoscopic Approach (ICD-10-PCS; principal; 2016-08-09 09:15)
DX: Z30.2 Encounter for sterilization (principal); E66.9 Obesity, unspecified; F32.9 Major depressive disorder, single episode, unspecified; F41.9 Anxiety disorder, unspecified; Z79.899 Other long term (current) drug therapy; Z68.41 Body mass index [BMI] 40.0-44.9, adult; Z86.14 Personal history of Methicillin resistant Staphylococcus aureus infection
CPT/HCPCS: 36415; 85027; 81005; 81025; 58671; J2250; J1100; J3010; J1170; J3490; J0330; J2405; S0020; J2704; J0690; 851

== ENCOUNTER 2017-12-07 00:15 | Emergency (ER) | payer SELFPAY ==
--- NOTE | 2017-12-07 01:24 | ER Document Report ---
ED General - General Chief Complaint: Vaginal Bleeding Stated Complaint: VAGINAL BLEEDING Time Seen by Provider: 12/07/17 00:52 Mode of Arrival: Ambulatory Information source: Patient Notes: Patient is a 27-year-old female who presents with chief complaint of vaginal bleeding for 87 days. Reports that she is passing large clots which she describes as the size of a pea. Patient reports that she was on Depo-Provera prior to her to control her heavy periods. She has been off of the Depo-Provera approximately 1 year. Patient denies any nausea, vomiting, fever or syncopal episodes. TRAVEL OUTSIDE OF THE [place] IN LAST 30 DAYS: No - Related Data Allergies/Adverse Reactions: No Known Allergies Allergy (Verified 05/31/16 11:22) Past Medical History - General Information source: Patient - Social History Smoking Status: Never Smoker Frequency of alcohol use: None Drug Abuse: None Family History: Reviewed & Not Pertinent - Past Medical History Cardiac Medical History: Denies: Hx Coronary Artery Disease, Hx Heart Attack, Hx Hypertension Pulmonary Medical History: Denies: Hx Asthma, Hx Bronchitis, Hx COPD, Hx Pneumonia Neurological Medical History: Denies: Hx Cerebrovascular Accident, Hx Seizures Renal/ Medical History: Denies: Hx Peritoneal Dialysis Musculoskeletal Medical History: Denies Hx Arthritis Psychiatric Medical History: Reports: Hx Anxiety Past Surgical History: Reports: Hx Tubal Ligation - Immunizations Hx Diphtheria, Pertussis, Tetanus Vaccination: Yes Review of Systems - Review of Systems Constitutional: No symptoms reported EENT: No symptoms reported Cardiovascular: No symptoms reported Respiratory: No symptoms reported Gastrointestinal: No symptoms reported Genitourinary: No symptoms reported Female Genitourinary: Heavy/abnormal periods, Vaginal bleeding Musculoskeletal: No symptoms reported Skin: No symptoms reported Hematologic/Lymphatic: No symptoms reported Neurological/Psychological: No symptoms reported Physical Exam - Vital signs Vitals: Temp Pulse Resp BP Pulse Ox 98.9 F 116 H 18 154/109 H 98 12/07/17 00:23 12/07/17 00:23 12/07/17 00:23 12/07/17 00:23 12/07/17 00:23 - Notes Notes: PHYSICAL EXAMINATION: GENERAL: Well-appearing, well-nourished and in no acute distress. HEAD: Atraumatic, normocephalic. EYES: Pupils equal round and reactive to light, extraocular movements intact, conjunctiva are normal. ENT: Nares patent, oropharynx clear without exudates. Moist mucous membranes. NECK: Normal range of motion, supple without lymphadenopathy LUNGS: Breath sounds clear to auscultation bilaterally and equal. No wheezes rales or rhonchi. HEART: Regular rate and rhythm without murmurs ABDOMEN: Soft, nontender, nondistended abdomen. No guarding, no rebound. No masses appreciated. Female : Patient declined speculum exam. Musculoskeletal: Normal range of motion, no pitting or edema. No cyanosis. NEUROLOGICAL: Cranial nerves grossly intact. Normal speech, normal gait. Normal sensory, motor exams PSYCH: Normal mood, normal affect. SKIN: Warm, Dry, normal turgor, no rashes or lesions noted. Course - Re-evaluation Re-evalutation: Otherwise healthy 27-year-old female with complaint of vaginal bleeding. Patient reports no bleeding at this time. Patient has not had any syncopal episodes. Patient's physical exam is unremarkable. Patient denies any abdominal pain. Patient reports history of tubal ligation. Patient was initially tachycardic on arrival 114 bpm, patient reports anxiety. Manual pulse rate 87. CBC with a hemoglobin of 14.0 and hematocrit of 40.8. Patient will be discharged home with plans to follow-up with [facility]. - Vital Signs Vital signs: Temp Pulse Resp BP Pulse Ox 98.1 F 94 18 128/87 H 98 12/07/17 04:06 12/07/17 04:06 12/07/17 04:06 12/07/17 04:06 12/07/17 04:06 - Laboratory Result Diagrams: 12/07/17 03:09 Laboratory results interpreted by me: 12/07/17 03:09 WBC 10.6 H RDW 15.1 H Discharge - Discharge Clinical Impression: Vaginal bleeding Condition: Stable Disposition: HOME, SELF-CARE Additional Instructions: Vaginal Bleeding You are having an episode of abnormal bleeding. Causes of abnormal vaginal bleeding can include miscarriage or tubal , tumors such as cancer or benign fibroids, medication effects, or hormone imbalance. Testing can eliminate unsuspected , tumors, or infection as a cause. "Dysfunctional uterine bleeding" is due to hormone imbalance, and is especially common at times when the normal cycle is disturbed -- whether by recent , use of control pills or hormones, or impending menopause. If the bleeding is innocent, most commonly a short course of hormones is given to restore the uterus to normal. Sometimes, the normal menstrual cycle corrects itself naturally. Sometimes , brief hormone therapy, or even a D&C is required. Your physician will advise you. Treatment for anemia may be required if bleeding is severe. You should rest and avoid intercourse until the bleeding is controlled. Call the doctor or return for re-examination if you feel faint, have increasing pain, or have a major increase in the amount of bleeding. Please call and make an appointment with OBGYN or the health department to follow up. Your blood work was normal today. You may need to be placed back on control to control your symptoms. Referrals: FER ROMERO MD [ACTIVE STAFF] - Follow up as needed PENDING SALE TO [facility] [NO LOCAL MD] - Follow up as needed
[2017-12-07 03:40] LABS: ABSOLUTE BASOPHILS # (AUTO) 0.1 10^3/uL (0.0-0.2); ABSOLUTE EOSINOPHILS # (AUTO) 0.1 10^3/uL (0.0-0.6); ABSOLUTE LYMPHOCYTES (AUTO) 2.6 10^3/uL (0.5-4.7); ABSOLUTE MONOCYTES (AUTO) 0.5 10^3/uL (0.1-1.4); ABSOLUTE NEUT (AUTO) 7.3 10^3/uL (1.7-8.2); BASOPHILS % (AUTO) 0.6 % (0-2); EOSINOPHILS % (AUTO) 0.8 % (0-6); HEMATOCRIT 40.8 % (36.0-47.0); MEAN CORPUSCULAR HEMOGLOBIN 28.1 pg (27.0-33.4); MEAN CORPUSCULAR HGB CONC 34.3 g/dL (32.0-36.0); MEAN CORPUSCULAR VOLUME 82 fl (80-97); MONOCYTES % (AUTO) 4.5 % (3-13); PLATELET COUNT 395 10^3/uL (150-450); RED BLOOD COUNT 4.97 10^6/uL (3.72-5.28); RED CELL DISTRIBUTION WIDTH 15.1 % (11.5-14.0); SEGMENTED NEUTROPHILS % (AUTO) 69.1 % (42-78); TOTAL CELLS COUNTED % (AUTO) 100 %; WHITE BLOOD COUNT 10.6 10^3/uL (4.0-10.5)
[2017-12-07 04:07] VITALS: BP 128/87
== END 2017-12-07 04:07 | disposition home or self-care (01) ==
LOC: ER 00:15
DX: N93.9 Abnormal uterine and vaginal bleeding, unspecified (principal); Z98.51 Tubal ligation status; F41.9 Anxiety disorder, unspecified
CPT/HCPCS: 36415; 85025; 99284